=== PATIENT | female | born 1950 | race Asian ===

== ENCOUNTER 2017-03-31 13:16 | Inpatient (IN) | payer MEDICARE, MEDICAID ==
[2017-03-31] VITALS (8 sets, daily range): BP systolic 138–194; BP diastolic 92–111; PULSE 78–112; RESP 20; O2SAT 96–99
[~2017-03-31] VITALS: Ht 154.9 cm; Wt 41.3 kg
[2017-03-31 14:14] LABS: BASOPHILS % (AUTO) 0.2 % (0-3); EOSINOPHILS % (AUTO) 1.8 % (0-5); MONOCYTES % (AUTO) 4.6 % (4-12); Mean Corpuscular Hemoglobin 19.3 pg (27.0-35.0); Mean Corpuscular Volume 59.6 fL (81-100); NEUTROPHILS % (AUTO) 88.2 % (40-74); Platelet Count 258 bil/L (150-400)
--- NOTE | 2017-03-31 15:56 | ED.REPORT ---
HPI-General Illness Date of Service Mar 31, 2017 ED Provider: History of Present Illness: 66yo female with steadily worsening weakness for 1 month. She returned from [place] in early March and family members report continued decline in functioning. Pt. reports increasing abdominal pain, and decreased bowel function. No BM in 1 week. Se was seen in Urgent care Clinic earlier today and referred here for further evaluation. No meds or allergies. Nursing Notes Stated Complaint: NOT FEELING WELL Chief Complaint: General Complaint Nursing Notes Reviewed: Yes Allergies: Coded Allergies: No Known Allergies (Unverified , 03/31/17) No Active Prescriptions or Reported Meds General Time Seen by MD: 15:49 Chief Complaint Abdominal pain, Weakness Hx Obtained From: Patient Arrived By: Walk-in Sudden in Onset?: No Onset Occurred: More than a week ago... (3 weeks) Symptom Duration: Since onset Severity: Current: Mild Severity: Maximum: Moderate Similar Sx Previous: No Past Medical History Past Medical History Pt. denies Past Surgical History Pt. denies Social History Alcohol Use: Denies alcohol use Drug Use: Denies drug use Other Social History: Good social support Ambulatory Status Independent Review of Systems Full Review of Systems Constitutional: Reports: Weakness - generalized, Denies: Chills, Fever Respiratory: Denies: Non-productive cough, Shortness of breath, Wheezing Cardiovascular: Denies: Chest pain GI: Reports: Abdominal pain, Constipation Neurologic: Denies: Change LOC, Confusion, Dizziness, Headache, Slurred speech Complete sys rev & neg: except as marked. Physical Exam Vital Signs Vital Signs Date Time Temp Pulse Resp B/P Pulse Ox O2 Delivery O2 Flow Rate FiO2 03/31/17 16:25 36.6 78 20 158/100 99 Room Air 03/31/17 13:22 36.4 111 20 138/92 99 Room Air Initial VS: Reviewed General/Constitutional: Awake, Alert, No acute distress, Well hydrated, Not toxic appearing Appearance / Presentation: Positive: Frail Pt. likely has some cognitive decline. ENT: Airway patent, Mucous membranes moist, Pharynx NL Neck: Supple, Full range of motion, No adenopathy Respiratory / Chest: Atraumatic, Breath sounds NL, Breath sounds = bilat Cardiovascular: Heart rate NL, Regular rhythm, Heart sounds NL Abdomen: Soft, No guarding, No distention, No palpable mass Tenderness/Guarding/Rebound: Positive: Tender diffuse Interpretation & Diagnostics Lab Results Interpretation Result Diagram: 03/31/17 1405 03/31/17 1405 Test 03/31/17 14:05 03/31/17 16:31 White Blood Count 23.4th/mm3 (3.8-10.1) Red Blood Count 6.06mil/mm3 (3.90-5.20) Hemoglobin 11.7g/dL (12.0-15.6) Hematocrit 36.1% (35.0-46.0) Mean Corpuscular Volume 59.6fL (81-100) Mean Corpuscular Hemoglobin 19.3pg (27.0-35.0) Mean Corpuscular Hemoglobin Concent 32.4% (32.0-37.0) Red Cell Distribution Width 17.9% (12.3-15.4) Platelet Count 258bil/L (150-400) Neutrophils (%) (Auto) 88.2% (40-74) Lymphocytes (%) (Auto) 4.5% (14-46) Monocytes (%) (Auto) 4.6% (4-12) Eosinophils (%) (Auto) 1.8% (0-5) Basophils (%) (Auto) 0.2% (0-3) Sodium Level 126mEq/L (134-144) Potassium Level 5.2mEq/L (3.5-5.2) Chloride Level 87mEq/L (97-108) Carbon Dioxide Level 21mmol/L (18-29) Blood Urea Nitrogen 35mg/dL (8-27) Creatinine 1.00mg/dL (0.57-1.00) Estimat Glomerular Filtration Rate 79mL/min (>59) Glucose Level 141mg/dL (60-99) Calcium Level 9.8mg/dL (8.5-10.1) Total Bilirubin 0.4mg/dL (0.0-1.2) Aspartate Amino Transf (AST/SGOT) 24U/L (0-50) Alanine Aminotransferase (ALT/SGPT) 36U/L (0-32) Alkaline Phosphatase 705U/L (25-165) Total Protein 7.9g/dL (6.4-8.4) Albumin 3.8g/dL (3.4-5.0) Urine Color Yellow (YELLOW) Urine Appearance Cloudy (CLEAR,HAZY) Urine pH 5.5 (5.0-8.0) Urine Specific Campbell 1.024 (1.003-1.035) Urine Protein 100mg/dL (NEG,TRACE) Urine Glucose (UA) Negativemg/dL (NEGATIVE) Urine Ketones Negativemg/dL (NEGATIVE) Urine Occult Blood Trace (NEGATIVE) Urine Nitrite Negative (NEGATIVE) Urine Bilirubin Negative (NEGATIVE) Urine Urobilinogen Normalmg/dL (NORMAL) Urine Leukocyte Esterase Trace (NEGATIVE) Urine RBC 0-2/hpf (0-2) Urine WBC 11-50/hpf (0-5) Urine Epithelial Cells Few/hpf (NONE-MOD) Urine Crystals None seen (NONE SEEN) Urine Bacteria Many/hpf (NONE-FEW) Urine Hyaline Casts None/lpf (NONE) Urine Granular Casts None seen (NONE SEEN) Urine Waxy Casts None seen (NONE SEEN) Urine Red Blood Cell Casts None seen (NONE SEEN) Urine White Blood Cell Casts None seen (NONE SEEN) Urine Mucus Present (None Seen) Urine Trichomonas None seen (NONE SEEN) Urine Yeast None (NONE SEEN) Urinalysis Comment Transitional epi Urine Culture Reflexed Indicated CT Abd / Pelvis Interpretation Patient Name: ELLIS GREENBERG MR#: [id number] [place] [facility] [place] Ordering Phys: Stepan Jameson [facility] Date of Service: 03/31/17 1601 PROCEDURE: CT ABDOMEN AND PELVIS WITH CONTRAST ([id number]) INDICATIONS: 66 year-old female with diffuse abdominal pain and leukocytosis. TECHNIQUE: After the administration of oral and intravenous contrast, 5 mm thick sections acquired from the diaphragms to the symphysis. 5 mm thick coronal and sagittal reformats were performed. For radiation dose reduction, the following was used: automated exposure control, adjustment of mA and/or kV according to patient size. COMPARISON: None. FINDINGS: Image quality: Excellent. ABDOMEN: Lung bases: Numerous small right lung base nodules are present. Larger 2.6 x 2.2 cm masslike lesion lies within the left lower lobe, with small left basal pleural effusion causing left lung base compressive atelectasis. On axial image 4, several irregular enhancing pleural lesions lie adjacent to the descending thoracic aorta, measuring up to 2.5 x 1.4 cm. Solid organs: Liver is normal in overall size, with multiple hypoenhancing mass lesions identified with ill-defined borders, measuring up to 4.1 x 4.0 cm in the inferior right hepatic lobe. Gallbladder demonstrates diffuse circumferential wall thickening or pericholecystic fluid. Biliary system is non-dilated. Pancreas enhances normally. Spleen is normal in size, with solitary 1.2 cm medial hypoenhancing nodule on axial image 14. No adrenal nodules. Kidneys are normal in size and enhancement, without hydronephrosis. Peritoneum and bowel: Stomach, small bowel, and colon loops are normal in caliber and wall thickness. The appendix appears normal in caliber. No free fluid or air. Nodes and vessels: No retroperitoneal or mesenteric adenopathy. Aorta and inferior vena cava are normal in caliber, with aortoiliac atherosclerosis. Miscellaneous: No ventral hernias. PELVIS: Genitourinary: Bladder wall thickness is normal. The uterus is normal in overall size. Postmenopausal ovaries are not well seen. Miscellaneous: No inguinal hernias or adenopathy. Bones: Multiple sclerotic lesions involve the lower thoracic spine, as well as the L1, L2, and L4 vertebral bodies. Additional sclerotic lesions involve the sacrum and bilateral pelvic ring. No pathologic fractures identified. IMPRESSION: 1. Multiple hypovascular liver metastases of uncertain primary neoplasm. Additional solitary smaller medial splenic lesion is also suspicious for metastasis. 2. Numerous small right lung base metastases, as well as larger 2.6 cm left lower lobe mass lesion (possibly primary bronchogenic neoplasm). Consider contrast-enhanced chest CT to evaluate for more lesions within the mid and superior thorax when clinically feasible. 3. Small left basal pleural effusion is presumably malignant, along with several irregular enhancing left pleural lesions suspicious for metastases. Ultrasound-guided diagnostic left thoracentesis may be considered for further evaluation. 4. Numerous sclerotic bony metastases involve the lumbar and lower thoracic spine, as well as the sacrum and pelvic ring. 5. Circumferential gallbladder wall thickening and/or pericholecystic fluid may suggest acute cholecystitis in the appropriate clinical setting. Dictated by: Zia Grace M.D. on 03/31/2017 at 18:13 Approved by: Zia Grace M.D. on 03/31/2017 at 18:26 Re-Eval/Medical Decision Med Decision/Clinical Course Pt. and family apprised of CT results showing liver, lung, and bone cancer. Pt. may also have cholecystitis. Pt. examined by Dr. Rutherford who ordered IV antibiotics, and wants surgeon consult after admission to hospitalist service. Consultation : Consulted With: Hospitalist Requested Call at: 18:30 Call Returned at: 19:20 Dial Refinisher: Accepts admit Note: Starr Chinchilla MD, accepts Pt. to her service Counseled Regarding: Diagnosis, Need for admission Discharge & Departure Primary Impression: Liver cancer Liver malignancy type: unspecified liver malignancy Qualified Code: C22.9 - Malignant neoplasm of liver, not specified as primary or secondary Additional Impressions: Lung cancer Laterality: unspecified laterality Lung location: unspecified part of lung Qualified Code: C34.90 - Malignant neoplasm of unspecified part of unspecified bronchus or lung Weakness Hyponatremia Disposition: ADMITTED TO HOSPITAL EDSupervising Provider for APC: Aiden Rutherford Christopher R PAC Mar 31, 2017 15:56
[2017-03-31] MEDS ORDERED: 0.9% Sodium Chloride 1,000 ML IV SCH (16:05)
[2017-03-31] MEDS ORDERED: Iohexol 300 mg/mL 30 mL Inj PO ONE (16:20)
[2017-03-31 17:08] LABS: APPEARANCE,URINE CLOUDY (CLEAR,HAZY); COLOR,URINE YELLOW (YELLOW); PH,URINE 5.5 (5.0-8.0)
[2017-03-31 17:10] LABS: OCCULT BLOOD,URINE TRACE (NEGATIVE); UROBILINOGEN,URINE NORMAL (NORMAL)
--- NOTE | 2017-03-31 18:28 | DRSVH ---
PROCEDURE: CT ABDOMEN AND PELVIS WITH CONTRAST ([id number]) INDICATIONS: 66 year-old female with diffuse abdominal pain and leukocytosis. TECHNIQUE: After the administration of oral and intravenous contrast, 5 mm thick sections acquired from the diap hragms to the symphysis. 5 mm thick coronal and sagittal reformats were performed. For radiation do se reduction, the following was used: automated exposure control, adjustment of mA and/or kV accordi ng to patient size. COMPARISON: None. FINDINGS: Image quality: Excellent. ABDOMEN: Lung bases: Numerous small right lung base nodules are present. Larger 2.6 x 2.2 cm masslike lesion l ies within the left lower lobe, with small left basal pleural effusion causing left lung base rox sive atelectasis. On axial image 4, several irregular enhancing pleural lesions lie adjacent to the d escending thoracic aorta, measuring up to 2.5 x 1.4 cm. Solid organs: Liver is normal in overall size, with multiple hypoenhancing mass lesions identified wi th ill-defined borders, measuring up to 4.1 x 4.0 cm in the inferior right hepatic lobe. Gallbladder demonstrates diffuse circumferential wall thickening or pericholecystic fluid. Biliary system is non -dilated. Pancreas enhances normally. Spleen is normal in size, with solitary 1.2 cm medial hypoenh ancing nodule on axial image 14. No adrenal nodules. Kidneys are normal in size and enhancement, wit hout hydronephrosis. Peritoneum and bowel: Stomach, small bowel, and colon loops are normal in caliber and wall thickness . The appendix appears normal in caliber. No free fluid or air. Nodes and vessels: No retroperitoneal or mesenteric adenopathy. Aorta and inferior vena cava are no rmal in caliber, with aortoiliac atherosclerosis. Miscellaneous: No ventral hernias. PELVIS: Genitourinary: Bladder wall thickness is normal. The uterus is normal in overall size. Postmenopaus al ovaries are not well seen. Miscellaneous: No inguinal hernias or adenopathy. Bones: Multiple sclerotic lesions involve the lower thoracic spine, as well as the L1, L2, and L4 rubén tebral bodies. Additional sclerotic lesions involve the sacrum and bilateral pelvic ring. No patholog ic fractures identified. IMPRESSION: 1. Multiple hypovascular liver metastases of uncertain primary neoplasm. Additional solitary smaller medial splenic lesion is also suspicious for metastasis. 2. Numerous small right lung base metastases, as well as larger 2.6 cm left lower lobe mass lesion (p ossibly primary bronchogenic neoplasm). Consider contrast-enhanced chest CT to evaluate for more lesi ons within the mid and superior thorax when clinically feasible. 3. Small left basal pleural effusion is presumably malignant, along with several irregular enhancing left pleural lesions suspicious for metastases. Ultrasound-guided diagnostic left thoracentesis may b e considered for further evaluation. 4. Numerous sclerotic bony metastases involve the lumbar and lower thoracic spine, as well as the sac rum and pelvic ring. 5. Circumferential gallbladder wall thickening and/or pericholecystic fluid may suggest acute cholecy stitis in the appropriate clinical setting. Dictated by: Zia Grace M.D. on 03/31/2017 at 18:13 Approved by: Zia Grace M.D. on 03/31/2017 at 18:26
[2017-03-31] MEDS ORDERED: Piperacillin-Tazo 3.375 Gm Inj 3.375 GM in Dextrose 5% Minibag Plus 50 ML IV ONE (18:40)
[2017-03-31] MEDS ORDERED: Alum-Mag Hydrox-Simeth 30 mL Suspension PO PRN (20:50)
[2017-03-31] MEDS ORDERED: Polyethylene Glycol (PEG) 17 Gm Powder PO PRN (20:50)
[2017-03-31] MEDS ORDERED: Ondansetron 2 mg/mL 2 mL Inj IVPUSH PRN (20:50)
--- NOTE | 2017-03-31 22:28 | PCM.HPMED ---
Subjective Date of Service Mar 31, 2017 Primary Provider: Admitting Physician: Starr Chinchilla DO Primary Care Physician: Magdaleno Attending Physician: Starr Chinchilla DO Admit Status: From the Emergency Department Chief Complaint: General malaise and fatigue History of Present Illness: History obtained from family as patient is a poor historian. 66-year-old female with reported paranoid delusions presents emergency department due to progressive weakness and weight loss over the last month, with rapid decline over the last 2 weeks. Per patient report, she recently returned from [facility] (March 18) with a week long stay in [place]. Upon leaving [facility] she had started to become more warm down, but after her one- week stay in [place] she began having severe weakness with very little exertional capacity. since being here with her daughter she has continued decline more rapidly and is currently anorexic. She denies ongoing fever, chills, nausea, vomiting, diarrhea, right upper quadrant pain; she does state that she has diffuse abdominal tenderness, has noticed a weight loss in the last month but is unable to say how much. She denies any night sweats or neurological sequelae. In the ED CT of the abdomen was obtained which showed very diffuse metastatic disease in the abdomen and lungs with unknown primary. Patient also has questionable cholecystitis diagnosed by CT, which is not ideal, but also has leukocytosis and elevated LFTs. Called surgery may Dr. Jimenez aware of the situation and he requests an ultrasound of the right upper quadrant. At this time I did not ask him to see the patient urgently but he will follow-up in the a.m. when the ultrasound was completed. Review of Systems: Complete review of systems performed; pertinent positives and negatives per history of present illness, all other systems reviewed and are negative Allergies Coded Allergies: No Known Allergies (Unverified , 03/31/17) PMH None reported Surgical History None reported Family History Sister had unknown cancer Unsure about parents Social History Hx Alcohol Use: No Hx Substance Use: No Hx Tobacco Use: No (denies) Smoking Status: Never Smoker Living Arrangement: with Family (she is somewhat transient moving between [facility], [place], and [place]) Exam Vital Signs Vital Sign - Last Date Time Temp Pulse Resp B/P Pulse Ox O2 Delivery O2 Flow Rate FiO2 03/31/17 21:40 104 03/31/17 21:30 37.7 20 194/111 96 Room Air Exam General: Reserved, age-appropriate female, no acute distress HEENT: PERRLA, EOMI, nonicteric, membranes moist; cataracts Lymph: Enlarged cervical lymph nodes; did not appreciate supraclavicular lymph nodes Cardio: Regular rate and rhythm no murmurs rubs or gallops Respiratory: CTA bilaterally crackles noted Abdomen: Mildly guarded, no rebound, positive bowel sounds, hepatosplenomegaly dullness to percussion 4 cm below the rib cage on the right; no right upper quadrant tenderness to palpation Extremities: No edema; 3 out of 5 Psych: Reserved Neuro: CN II through XII grossly intact, sensation intact throughout Skin: No rash Lab and Diagnostics Result Diagram: 03/31/17 1405 03/31/17 1405 X-Rays, CTs and MRIs CT of abdomen IMPRESSION: 1. Multiple hypovascular liver metastases of uncertain primary neoplasm. Additional solitary smaller medial splenic lesion is also suspicious for metastasis. 2. Numerous small right lung base metastases, as well as larger 2.6 cm left lower lobe mass lesion (possibly primary bronchogenic neoplasm). Consider contrast-enhanced chest CT to evaluate for more lesions within the mid and superior thorax when clinically feasible. 3. Small left basal pleural effusion is presumably malignant, along with several irregular enhancing left pleural lesions suspicious for metastases. Ultrasound-guided diagnostic left thoracentesis may be considered for further evaluation. 4. Numerous sclerotic bony metastases involve the lumbar and lower thoracic spine, as well as the sacrum and pelvic ring. 5. Circumferential gallbladder wall thickening and/or pericholecystic fluid may suggest acute cholecystitis in the appropriate clinical setting. Dictated by: Zia Grace M.D. on 03/31/2017 at 18:13 Assessment & Plan 66-year-old female with reported paranoid delusions who presents due to increasing weakness, general malaise, anorexia, and reported weight loss with diffuse metastases of unknown primary origin Sepsis; present admission; ongoing -Presents with tachycardia and leukocytosis -Source likely gallbladder -See below for treatment -Patient does not appear toxic at this point Acute cholecystitis; was on admission; ongoing -Patient is not overly tender in the right upper quadrant for possible cholecystitis on CT with leukocytosis 26,000; alkaline phosphatase elevated at 705 (potentially d/t metastatic disease) -Discussed with Dr. Jimenez of surgery requested ultrasound; I did not request that he urgently evaluate the patient; will watch for any decompensation -Ultrasound ordered -Zosyn every 8HR -Repeat labs in a.m. Diffuse metastases of unknown primary origin; present admission; ongoing -Presents with weight loss, anorexia over the last month or so; enlarged auricular lymph nodes -CT demonstrated diffuse metastatic disease -consultation from palliative in the a.m. -consultation from oncology consultation in a.m. -Patient does not believe her diagnosis and family states she has an underlying paranoid delusion -Started on subq Heparin for prophylaxis Hypertensive urgency; present admission; ongoing -Presents with blood pressure 130/72 but quickly increased to greater than 190/ 110 -Labetalol 20 mg ordered for SBP greater than 180 Should this persist will move her to the ICU with nicardipine gtt Microcytic hypochromic anemia, chronicity unknown; present on admission; ongoing -MCV and MCH, as well as hemoglobin decreased -Iron studies Hyponatremia, hypochloremia; present admission; ongoing -Unsure chronicity, very small anion gap of 18 -Likely 2/2 SIADH in the setting of cancer however patient will be treated for sepsis at this time -Monitor sodium closely Hyperglycemia; present admission; ongoing -No history of diabetes -A1c ordered -Low correctional scale; will start basal tomorrow Disposition: Patient is being admitted to inpatient status with expected length of stay greater than two midnights due to to severity of presentation, duration of treatment, and risks of adverse events disposition Full code Pain Evaluation: Adequate Pain Control Resuscitation Status: CPR: Attempt Resuscitation Attending Statement The patient was seen and examined together with house staff on 03/31/2017 and I agree with the history, exam and plan as outlined in the note above. Chaitanya Fernandez DO Mar 31, 2017 22:28 Starr Chinchilla DO Apr 01, 2017 01:15
[2017-03-31] MEDS ORDERED: 0.9% Sodium Chloride 1,000 ML IV ONE ×2 (22:35→22:40)
[2017-03-31] MEDS ORDERED: Glucose 40% Oral Gel 15 Gm Tube PO PRN (22:45)
[2017-03-31] MEDS: 0.9% Sodium Chloride 1,000 ML IV SCH (22:46)
[2017-04-01] VITALS (15 sets, daily range): BP systolic 143–194; BP diastolic 89–112; PULSE 80–103; RESP 15–20; O2SAT 84–99
[2017-04-01] MEDS: Heparin 5,000 Unit/mL Inj SUBQ SCH ×3 (00:28→21:05)
[2017-04-01] MEDS ORDERED: Piperacillin-Tazo 3.375 Gm Inj 3.375 GM in Dextrose 5% Minibag Plus 50 ML IV SCH (00:30)
[2017-04-01] MEDS: Labetalol 5 mg/mL 20 mL Inj IVPUSH PRN ×4 (03:26→17:15)
[2017-04-01 04:30] LABS: BASOPHILS % (AUTO) 0.3 % (0-3); EOSINOPHILS % (AUTO) 4.8 % (0-5)
[2017-04-01 04:39] LABS: MONOCYTES % (AUTO) 9.4 % (4-12); Mean Corpuscular Hemoglobin 19.2 pg (27.0-35.0); Mean Corpuscular Volume 59.6 fL (81-100); NEUTROPHILS % (AUTO) 77.6 % (40-74); Platelet Count 161 bil/L (150-400)
[2017-04-01 04:43] LABS: INR 1.06 ratio
[2017-04-01 05:02] LABS: Magnesium 1.8 mg/dL (1.6-2.6); Phosphorus 3.5 mg/dL (2.5-4.9); Unsaturated Iron Binding 146.8 ug/dL
[2017-04-01] MEDS: Piperacillin-Tazo 3.375 Gm Inj 3.375 GM in Dextrose 5% Minibag Plus 50 ML IV SCH ×2 (05:34→18:08)
[2017-04-01] MEDS: 0.9% Sodium Chloride 1,000 ML IV SCH ×2 (06:43→16:56)
[2017-04-01] MEDS: Insulin LISPRO 300 Unit/3 mL Inj SUBQ SCH ×4 (07:45→21:05)
--- NOTE | 2017-04-01 09:51 | DRSVH ---
PROCEDURE: US ABDOMEN, LIMITED ([id number]) INDICATIONS: Septic gallbladder TECHNIQUE: Real-time focused scanning was performed of the abdomen, with image documentation. COMPARISON: [facility], CT, CT ABD PELVIS W CON, 03/31/2017, 17:42. FINDINGS: As was the case during CT scanning yesterday late afternoon multiple liver masses are seen within the right hepatic lobe the largest of which measures up to 3.6 cm. The gallbladder wall is sl ightly thickened at 3.1 mm, and there is no adjacent pericholecystic free fluid. The common duct is not distended measuring 2.8 mm. IMPRESSION: Multiple malignant appearing liver masses. This is equivalent to that seen during CT sca nning one day ago. Limited quality of visualization for this right upper quadrant limited ultrasound due to patient's inability to suspend respiration during image acquisition. The patient carries a p rior history of lung carcinoma. Dictated by: Kingston Jo M.D. on 04/01/2017 at 9:38 Approved by: Kingston Jo M.D. on 04/01/2017 at 9:50
--- NOTE | 2017-04-01 10:29 | PCM.CONSUR ---
Subjective Date of Service: Apr 01, 2017 History of Present Illness Mrs. Monterroso presented to the ED yesterday complaining that she has had decreased energy, back pain, and abdominal pain for the last month. This is been associated with weight loss, constipation, and decreased appetite with nausea. She denies fevers, sweats, chills, jaundice. She claims that she has always been healthy and without medical problems. CT scan was performed and showed metastatic disease of lung, liver, lumbar spine, of unknown primary origin. Surgery was consulted to evaluate for possible cholecystitis. Reason for Consultation Possible Acute cholecystitis Allergy Allergies: Coded Allergies: No Known Allergies (Unverified , 03/31/17) Medications Hypertension Medication: Yes (IV labetalol for hypertensive urgency upon admission) No Active Prescriptions or Reported Meds Past Surgical History Surgeries: No Patient/Family Past Surgical: Positive for:: Accept Blood Products?, Denies:: Blood Transfuse Reaction, Blood Transfusions Social History Hx Alcohol Use: No Hx Substance Use: No Hx Tobacco Use: No (denies) PMH HEENT History History of ENT Problems?: No Cardiovascular History History of Heart Problems?: No Cardiovascular History: Denies:: Congestive Heart Failure Hypertension Respiratory History of Respiratory Problem: Yes Respiratory History: Positive for:: Cough Denies:: Tuberculosis Neurological History Hx Neurologic Problems?: No Gastrointestinal History HX of GI Problems?: Yes (constipation) Genitourinary History Hx of Gu Problems?: No Musculoskeletal History Hx Musculoskeletal Problems?: Yes Musculoskeletal History: Positive for:: Back Injury Psycho Social History Hx of Psycho/Social Problems?: No Psycho Social History: Denies:: Anxiety Other History Hx Any Other Health Problems?: No Diabetes: NoBedside Blood Glucose: 118 Social History Hx Alcohol Use: NoHx Substance Use: NoHx Tobacco Use: No (denies) Smoking Status: Never Smoker Living Arrangement: with Family (she is somewhat transient moving between [facility], [place], and [place]) Objective Exam Vital Signs & I/O Vital Sign- Last 8 Hours Date Time Temp Pulse Resp B/P Pulse Ox O2 Delivery O2 Flow Rate FiO2 04/01/17 08:30 36.5 99 18 159/101 93 Room Air 04/01/17 03:30 93 146/91 04/01/17 03:21 36.8 103 16 183/111 97 Room Air Intake and Output- Last 8 Hour 04/01/17 Cumulative From/Thru 07:00 03/31/17 13:22 - 04/01/17 06:16 Intake Total 2132 ml 2132 ml Output Total 900 ml 900 ml Balance 1232 ml 1232 ml Intake Oral 300 ml 300 ml IV Total 1832 ml 1832 ml Output Urine Total 900 ml 900 ml # Voids 3 3 Lab & Micro Results Laboratory Tests Test 03/31/17 14:05 03/31/17 16:31 03/31/17 23:15 04/01/17 03:50 White Blood Count 23.4th/mm3 (3.8-10.1) 19.6th/mm3 (3.8-10.1) Red Blood Count 6.06mil/mm3 (3.90-5.20) 5.00mil/mm3 (3.90-5.20) Hemoglobin 11.7g/dL (12.0-15.6) 9.6g/dL (12.0-15.6) Hematocrit 36.1% (35.0-46.0) 29.8% (35.0-46.0) Mean Corpuscular Volume 59.6fL (81-100) 59.6fL (81-100) Mean Corpuscular Hemoglobin 19.3pg (27.0-35.0) 19.2pg (27.0-35.0) Mean Corpuscular Hemoglobin Concent 32.4% (32.0-37.0) 32.2% (32.0-37.0) Red Cell Distribution Width 17.9% (12.3-15.4) 17.3% (12.3-15.4) Platelet Count 258bil/L (150-400) 161bil/L (150-400) Neutrophils (%) (Auto) 88.2% (40-74) 77.6% (40-74) Lymphocytes (%) (Auto) 4.5% (14-46) 7.3% (14-46) Monocytes (%) (Auto) 4.6% (4-12) 9.4% (4-12) Eosinophils (%) (Auto) 1.8% (0-5) 4.8% (0-5) Basophils (%) (Auto) 0.2% (0-3) 0.3% (0-3) Sodium Level 126mEq/L (134-144) 128mEq/L (134-144) Potassium Level 5.2mEq/L (3.5-5.2) 4.2mEq/L (3.5-5.2) Chloride Level 87mEq/L (97-108) 94mEq/L (97-108) Carbon Dioxide Level 21mmol/L (18-29) 18mmol/L (18-29) Blood Urea Nitrogen 35mg/dL (8-27) 26mg/dL (8-27) Creatinine 1.00mg/dL (0.57-1.00) 0.82mg/dL (0.57-1.00) Estimat Glomerular Filtration Rate 79mL/min (>59) 100mL/min (>59) Glucose Level 141mg/dL (60-99) 111mg/dL (60-99) Calcium Level 9.8mg/dL (8.5-10.1) 8.8mg/dL (8.5-10.1) Total Bilirubin 0.4mg/dL (0.0-1.2) 0.4mg/dL (0.0-1.2) Aspartate Amino Transf (AST/SGOT) 24U/L (0-50) 23U/L (0-50) Alanine Aminotransferase (ALT/SGPT) 36U/L (0-32) 26U/L (0-32) Alkaline Phosphatase 705U/L (25-165) 584U/L (25-165) Total Protein 7.9g/dL (6.4-8.4) 6.0g/dL (6.4-8.4) Albumin 3.8g/dL (3.4-5.0) 2.9g/dL (3.4-5.0) Urine Color Yellow (YELLOW) Urine Appearance Cloudy (CLEAR,HAZY) Urine pH 5.5 (5.0-8.0) Urine Specific [place] 1.024 (1.003-1.035) Urine Protein 100mg/dL (NEG,TRACE) Urine Glucose (UA) Negativemg/dL (NEGATIVE) Urine Ketones Negativemg/dL (NEGATIVE) Urine Occult Blood Trace (NEGATIVE) Urine Nitrite Negative (NEGATIVE) Urine Bilirubin Negative (NEGATIVE) Urine Urobilinogen Normalmg/dL (NORMAL) Urine Leukocyte Esterase Trace (NEGATIVE) Urine RBC 0-2/hpf (0-2) Urine WBC 11-50/hpf (0-5) Urine Epithelial Cells Few/hpf (NONE-MOD) Urine Crystals None seen (NONE SEEN) Urine Bacteria Many/hpf (NONE-FEW) Urine Hyaline Casts None/lpf (NONE) Urine Granular Casts None seen (NONE SEEN) Urine Waxy Casts None seen (NONE SEEN) Urine Red Blood Cell Casts None seen (NONE SEEN) Urine White Blood Cell Casts None seen (NONE SEEN) Urine Mucus Present (None Seen) Urine Trichomonas None seen (NONE SEEN) Urine Yeast None (NONE SEEN) Urinalysis Comment Transitional epi Urine Culture Reflexed Indicated Lactic Acid Level 1.8mmol/L (0.4-2.0) 1.4mmol/L (0.4-2.0) Hematology Comments Rbc Prothrombin Time 11.4sec (8.1-12.5) Prothromb Time International Ratio 1.06ratio Phosphorus Level 3.5mg/dL (2.5-4.9) Magnesium Level 1.8mg/dL (1.6-2.6) Iron Level 79ug/dL (35-150) Total Iron Binding Capacity 226ug/dL (250-450) Percent Iron Saturation 35%sat (15-50) Unsaturated Iron Binding 146.8ug/dL Triglycerides Level 127mg/dL (0-149) Cholesterol Level 183mg/dL (100-199) LDL Cholesterol, Calculated 109.600mg/dL (0-99) VLDL Cholesterol 25.400mg/dL HDL Cholesterol 48mg/dL (>39) Cholesterol/HDL Ratio 3.81 (0.0-4.4) Procalcitonin 0.26ng/mL (0.00-0.08) Microbiology 03/31/17 Blood Culture, Received Pending 03/31/17 Urine Culture - Preliminary, Resulted Result Diagram: 04/01/1734904/01/17349 Review of Systems: Constitutional: Negative, except as otherwise mentioned in the history above. Ophthalmologic: Negative, except as otherwise mentioned in the history above. Cardiovascular: Negative, except as otherwise mentioned in the history above. Respiratory: Negative, except as otherwise mentioned in the history above. Gastrointestinal: Negative, except as otherwise mentioned in the history above. Genitourinary: Negative, except as otherwise mentioned in the history above. Musculoskeletal: Negative, except as otherwise mentioned in the history above. Neurological: Negative, except as otherwise mentioned in the history above. Psychiatric: Negative, except as otherwise mentioned in the history above. Hematologic/Lymphatic: Negative, except as otherwise mentioned in the history above. Allergic/Immunologic: Negative, except as otherwise mentioned in the history above. Additional Information CT concerning for metastatic cancer US did not reveal gallstones H&P Surgical Exam Exam General: Alert, Oriented X3, Cooperative, Mild Distress HEENT: Within normal limits & unremarkable Neck: Exceptions (soft nontender mass, approximately 3 x 6 cm, posterior to the angle of the left mandible) Respiratory: Breath Sounds Diminished (diminished throughout, lung sounds absent at left base posteriorly) Cardiac: Exam Unremarkable, Regular Rate/Rhythm Abdomen: Normal bowel sounds, Other (tender to deep palpation throughout the abdomen) Assessment & Plan Assessment 66-year-old female with newly identified metastatic disease of the liver, lumbar spine, and lungs, with abdominal pain. VTE Mechanical Devices: Intermittant Pneumatic CD Plan: -Unlikely to be cholecystitis in the absence of gallstones. Pain could be related to the metastases -please contact us if you have any questions. Herbie Elizondo DO Apr 01, 2017 10:29 Terry Jimenez MD Apr 01, 2017 21:08 Terry Jimenez MD Apr 01, 2017 21:08
--- NOTE | 2017-04-01 10:39 | PCM.PNMED ---
Subjective Date of Service Apr 01, 2017 Subjective She has less abdominal pain today. No nausea. She did receive some pain medication which did not help. No diarrhea. No chest pain or shortness of breath. No overnight events noted. Exam Vital Signs Vital Sign - Last Date Time Temp Pulse Resp B/P Pulse Ox O2 Delivery O2 Flow Rate FiO2 04/01/17 10:22 94 04/01/17 08:30 36.5 18 159/101 93 Room Air Intake and Output 03/31/17 03/31/17 04/01/17 Cumulative From/Thru 15:00 23:00 07:00 03/31/17 13:22 - 04/01/17 06:16 Intake Total 2132 ml 2132 ml Output Total 900 ml 900 ml Balance 1232 ml 1232 ml Intake Oral 300 ml 300 ml IV Total 1832 ml 1832 ml Output Urine Total 900 ml 900 ml # Voids 3 3 Exam Alert and oriented -3, no distress. Fluent speech Anicteric sclera. Lungs are clear with normal rate and effort Heart is regular without murmur gallop or rub Abdomen soft nontender, flat. No right upper quadrant tenderness at this time. Extremities are free of edema. Skin is free of rash or lesions. IVs and Medications Medications Reviewed: Medications were reviewed in detail Lab and Diagnostics Result Diagram: 04/01/17 0350 04/01/17 0350 X-Rays, CTs and MRIs CT of abdomen IMPRESSION: 1. Multiple hypovascular liver metastases of uncertain primary neoplasm. Additional solitary smaller medial splenic lesion is also suspicious for metastasis. 2. Numerous small right lung base metastases, as well as larger 2.6 cm left lower lobe mass lesion (possibly primary bronchogenic neoplasm). Consider contrast-enhanced chest CT to evaluate for more lesions within the mid and superior thorax when clinically feasible. 3. Small left basal pleural effusion is presumably malignant, along with several irregular enhancing left pleural lesions suspicious for metastases. Ultrasound-guided diagnostic left thoracentesis may be considered for further evaluation. 4. Numerous sclerotic bony metastases involve the lumbar and lower thoracic spine, as well as the sacrum and pelvic ring. 5. Circumferential gallbladder wall thickening and/or pericholecystic fluid may suggest acute cholecystitis in the appropriate clinical setting. Dictated by: Zia Grace M.D. on 03/31/2017 at 18:13 Date of Service: 04/01/17 0030 PROCEDURE: US ABDOMEN, LIMITED ([id number]) INDICATIONS: Septic gallbladder TECHNIQUE: Real-time focused scanning was performed of the abdomen, with image documentation. COMPARISON: [facility], CT, CT ABD PELVIS W LAURIE, 03/31/2017, 17:42. FINDINGS: As was the case during CT scanning yesterday late afternoon multiple liver masses are seen within the right hepatic lobe the largest of which measures up to 3.6 cm. The gallbladder wall is slightly thickened at 3.1 mm, and there is no adjacent pericholecystic free fluid. The common duct is not distended measuring 2.8 mm. IMPRESSION: Multiple malignant appearing liver masses. This is equivalent to that seen during CT scanning one day ago. Limited quality of visualization for this right upper quadrant limited ultrasound due to patient's inability to suspend respiration during image acquisition. The patient carries a prior history of lung carcinoma. Dictated by: Kingston Jo M.D. on 04/01/2017 at 9:38 Approved by: Kingston Jo M.D. on 04/01/2017 at 9:50 Assessment & Plan 66-year-old female with reported paranoid delusions who presents due to increasing weakness, general malaise, anorexia, and reported weight loss with diffuse metastases of unknown primary origin Sepsis; present admission; ongoing and improving. -Presents with tachycardia and leukocytosis -Source likely gallbladder -See below for treatment -Patient does not appear toxic at this point Acute cholecystitis; was on admission; ongoing and active. -Patient is not overly tender in the right upper quadrant for possible cholecystitis on CT with leukocytosis 26,000; alkaline phosphatase elevated at 705 (potentially d/t metastatic disease) -Discussed with Dr. Jimenez of surgery requested ultrasound; I did not request that he urgently evaluate the patient; will watch for any decompensation -Ultrasound ordered, reveals no bladder wall thickening, but no matt- cholestatic fluid. -Zosyn every 8HR -Repeat labs in a.m. Await surgery's opinion and medical versus surgical management Diffuse metastases of unknown primary origin; present admission; ongoing -Presents with weight loss, anorexia over the last month or so; enlarged auricular lymph nodes -CT demonstrated diffuse metastatic disease -consultation from palliative in the a.m. -consultation from oncology consultation in a.m. -Patient does not believe her diagnosis and family states she has an underlying paranoid delusion -Started on subq Heparin for prophylaxis. Will await palliative care consult pending clinical course with cholecystitis today. Hypertensive urgency; present admission; ongoing and improving. -Presents with blood pressure 130/72 but quickly increased to greater than 190/ 110 -Labetalol 20 mg ordered for SBP greater than 180 Should this persist will move her to the ICU with nicardipine gtt Microcytic hypochromic anemia, chronicity unknown; present on admission; ongoing -MCV and MCH, as well as hemoglobin decreased -Iron studies Hyponatremia, hypochloremia; present admission; ongoing -Unsure chronicity, very small anion gap of 18 -Likely 2/2 SIADH in the setting of cancer however patient will be treated for sepsis at this time -Monitor sodium closely, will add urine osmolality and sodium. Hyperglycemia; present admission; ongoing and improving. -No history of diabetes -A1c ordered -Low correctional scale; will start basal tomorrow Disposition: Patient is being admitted to inpatient status with expected length of stay greater than two midnights due to to severity of presentation, duration of treatment, and risks of adverse events disposition Full code VTE Mechanical Devices: Intermittant Pneumatic CD Resuscitation Status: CPR: Attempt Resuscitation Marc Jones MD Apr 01, 2017 10:39
[2017-04-01 12:07] LABS: OSMOLALITY, URINE 611 mOs/kH2O (250-1200)
[2017-04-01] MEDS: MeTOProlol XL 25 mg ER24 Tablet PO SCH (14:22)
[2017-04-02] VITALS (20 sets, daily range): BP systolic 155–201; BP diastolic 82–122; PULSE 78–100; RESP 15–18; O2SAT 94–100
[2017-04-02] MEDS: Labetalol 5 mg/mL 20 mL Inj IVPUSH PRN ×2 (00:31→08:18)
[2017-04-02] MEDS: oxyCODONE ER 10 mg ER12 Tablet PO SCH ×2 (02:22→14:31)
[2017-04-02 03:03] LABS: Mean Corpuscular Hemoglobin 19.1 pg (27.0-35.0); Mean Corpuscular Volume 60.6 fL (81-100)
[2017-04-02] MEDS: Piperacillin-Tazo 3.375 Gm Inj 3.375 GM in Dextrose 5% Minibag Plus 50 ML IV SCH ×2 (05:36→17:44)
[2017-04-02] MEDS: Insulin LISPRO 300 Unit/3 mL Inj SUBQ SCH (08:00)
[2017-04-02] MEDS: Heparin 5,000 Unit/mL Inj SUBQ SCH ×2 (08:19→19:57)
[2017-04-02] MEDS: MeTOProlol XL 25 mg ER24 Tablet PO SCH (09:48)
--- NOTE | 2017-04-02 14:40 | PCM.PNMED ---
Subjective Date of Service Apr 02, 2017 Subjective 66-year-old woman with poorly characterized chronic psychiatric disorder presents with 1 month of weakness and weight loss, abdominal pain evaluation, and found to have metastatic lesions of unknown primary origin. Patient is communicative but gives wandering non sequitur answers. She denies feeling fevers or chills. She denies abdominal pain at rest or with palpation. She appears comfortable. Reportedly not eating very much, because she does not like the food. Daughter expressing concerns about level of care she requires at home. Exam Vital Signs Vital Sign - Last Date Time Temp Pulse Resp B/P Pulse Ox O2 Delivery O2 Flow Rate FiO2 04/02/17 12:58 37.1 86 18 158/82 94 Room Air 04/02/17 05:40 1.00 Intake and Output 04/01/17 04/01/17 04/02/17 Cumulative From/Thru 15:00 23:00 07:00 03/31/17 13:22 - 04/02/17 04:21 Intake Total 1899 ml 918 ml 4949 ml Output Total 350 ml 800 ml 2050 ml Balance 1549 ml 118 ml 2899 ml Intake Oral 720 ml 100 ml 1120 ml IV Total 1179 ml 818 ml 3829 ml Output Urine Total 350 ml 800 ml 2050 ml # Voids 3 # Bowel Movements 0 0 Exam General: Responds to questions, no acute distress HEENT: sclerae anicteric, oral mucosa moist Neck: no JVD Chest: Poor inspiratory effort, Bibasilar crackles right greater than left Cardiac: S1S2, no murmur Abdomen: BS normal, non-tender, not distended Extremities: No pedal edema Neuro: Alert but does not seem fully oriented, possibly language and psychiatric impediments, cranial nerves symmetric, motor strength 4/5, coordination generally normal IVs and Medications Medications Reviewed: Medications were reviewed in detail Lab and Diagnostics Alkaline phosphatase 584, total bilirubin 0.4. Transaminases normal. Procalcitonin 0.26 Result Diagram: 04/02/1723904/02/17239 Microbiology Specimen: [id number] Collected: 03/31/17 Status: RES Req#: [id number] Received: 03/31/17 Source: URINE CC Sp Desc : PP Subm Dr: Stepan Jameson PAC Ordered: URINE CULT Procedure Result Verified Site Microbiology MAME CULT URINE Preliminary 04/01/17-0650 PRELIMINARY ID GRAM NEGATIVE JA ID AND SENS TO FOLLOW COLONY COUNT/QUANTITY >100,000 CFU/ml X-Rays, CTs and MRIs CT of abdomen IMPRESSION: 1. Multiple hypovascular liver metastases of uncertain primary neoplasm. Additional solitary smaller medial splenic lesion is also suspicious for metastasis. 2. Numerous small right lung base metastases, as well as larger 2.6 cm left lower lobe mass lesion (possibly primary bronchogenic neoplasm). Consider contrast-enhanced chest CT to evaluate for more lesions within the mid and superior thorax when clinically feasible. 3. Small left basal pleural effusion is presumably malignant, along with several irregular enhancing left pleural lesions suspicious for metastases. Ultrasound-guided diagnostic left thoracentesis may be considered for further evaluation. 4. Numerous sclerotic bony metastases involve the lumbar and lower thoracic spine, as well as the sacrum and pelvic ring. 5. Circumferential gallbladder wall thickening and/or pericholecystic fluid may suggest acute cholecystitis in the appropriate clinical setting. Dictated by: Zia Grace M.D. on 03/31/2017 at 18:13 Date of Service: 04/01/17 0030 PROCEDURE: US ABDOMEN, LIMITED ([id number]) INDICATIONS: Septic gallbladder TECHNIQUE: Real-time focused scanning was performed of the abdomen, with image documentation. COMPARISON: [facility], CT, CT ABD PELVIS W CON, 03/31/2017, 17:42. FINDINGS: As was the case during CT scanning yesterday late afternoon multiple liver masses are seen within the right hepatic lobe the largest of which measures up to 3.6 cm. The gallbladder wall is slightly thickened at 3.1 mm, and there is no adjacent pericholecystic free fluid. The common duct is not distended measuring 2.8 mm. IMPRESSION: Multiple malignant appearing liver masses. This is equivalent to that seen during CT scanning one day ago. Limited quality of visualization for this right upper quadrant limited ultrasound due to patient's inability to suspend respiration during image acquisition. The patient carries a prior history of lung carcinoma. Dictated by: Kingston Jo M.D. on 04/01/2017 at 9:38 Approved by: Kingston Jo M.D. on 04/01/2017 at 9:50 Assessment & Plan 66-year-old female with reported paranoid delusions who presents due to increasing weakness, general malaise, anorexia, and reported weight loss with diffuse metastases of unknown primary origin # SIRS; present admission; ongoing and improving. Her rate 111, respiratory rate 20, WBC 23.4 on admission. Afebrile. Initial concern for abdominal sepsis resulted in surgical consultation on broad-spectrum antibiotic. Abdominal ultrasound appears to rule out acute cholecystitis. No plans for surgery. She has a urinary infection but is not clear that this accounts for her leukocytosis. -Monitor blood pressure and urinary output # Pyelonephritis, present on admission, ongoing. No symptoms but her history quality is poor. Leukocytosis seems out of proportion. - Await culture and sensitivities - Continue Zosyn until narrowing antibiotics on culture results # Probable Carcinoma unknown primary origin; present admission; ongoing - Presents with weight loss, anorexia over the last month or so; enlarged auricular lymph nodes - CT demonstrated diffuse metastatic disease - liver, lung, spleen - Patient does not believe her diagnosis and family states she has an underlying paranoid delusion - Ultrasound-guided thoracentesis with cytology if possible - Ultrasound liver biopsy if thoracentesis is not feasible # Hypertensive urgency; present admission; ongoing and improving. -Presents with blood pressure 130/72 but quickly increased to greater than 190/ 110 - Labetalol 20 mg ordered for SBP greater than 180 Stable, and/or resolving problems: # Possible Acute cholecystitis; was on admission; resolved. - Ultrasound reveals no bladder wall thickening, but no matt-cholestatic fluid. -Discussed with Dr. Jimenez of surgery; will watch for any decompensation - Initially treated with Zosyn every 8HR - Follow clinically for further abdominal pain # Microcytic hypochromic anemia, chronicity unknown; present on admission; ongoing -MCV and MCH, as well as hemoglobin decreased -Iron studies # Hyponatremia, hypochloremia; present admission; resolving. -Unsure chronicity, very small anion gap of 18 -Monitor sodium closely, will add urine osmolality and sodium. # Hyperglycemia; present admission; ongoing and improving. -No history of diabetes - Discontinued blood glucose checks as she has been normoglycemic Disposition: Patient is being admitted to inpatient status with expected length of stay greater than two midnights due to to severity of presentation, duration of treatment, and risks of adverse events disposition Full code Pain Evaluation: Adequate Pain Control VTE Mechanical Devices: Intermittant Pneumatic CD Resuscitation Status: CPR: Attempt Resuscitation Time spent 45 minutes Kwabena Mueller MD Apr 02, 2017 14:40
--- NOTE | 2017-04-02 16:34 | DRSVH ---
PROCEDURE: X-RAY CHEST ONE VIEW ([id number]) INDICATIONS: rule out procedural Pneumothorax TECHNIQUE: One view of the chest was acquired. COMPARISON: [facility], US, ABDOMEN LTD, 04/01/2017, 0:58. [facility], CT, C T ABD PELVIS W CON, 03/31/2017, 17:42. FINDINGS: Surgical changes and devices: None. Lungs and pleura: No pneumothorax after left thoracentesis. Lungs are edematous and there is consol idation at the left lower lobe. Mediastinum: Mediastinal contours appear normal. Heart size is normal. Bones and chest wall: No suspicious bony lesions. Overlying soft tissues appear unremarkable. IMPRESSION: No pneumothorax after left thoracentesis, consolidation left lower lobe likely represents a combination of atelectasis and pleural effusion in that area. Dictated by: Kingston Jo M.D. on 04/02/2017 at 16:28 Approved by: Kingston Jo M.D. on 04/02/2017 at 16:31
--- NOTE | 2017-04-02 17:16 | DRSVH ---
PROCEDURE: US GUIDED THORACENTESIS BY REFERRING PHYSICIAN ([id number]) INDICATIONS: malignancy versus empyema TECHNIQUE: The indications, alternatives, benefits, risks, and complications of the procedure were explained to the patient. Written informed consent was obtained and placed in the chart. The chest was examined sonographically, and an appropriate site was chosen for thoracentesis. The skin was prepared and jimbo ped in the usual sterile fashion, and 1% lidocaine was infiltrated from the skin down through the ple ural surface. A 19-gauge catheter-covered needle was then introduced into the pleural space, the cat heter was advanced and the needle was withdrawn, and thereafter pleural fluid was aspirated. The cat heter was then removed and a dressing was applied. The attending physician was present, and personal ly performed the procedure. COMPARISON: None. FINDINGS: Access site: Left hemithorax. Needle: One-Step centesis catheter with introducer needle. Fluid volume and description: Fluid sent for cytology, multiple chemistry panels and therapeutic jimbo inage. Fluid sent for diagnostic testin cc of clear pleural fluid. Medications: 1% lidocaine for local anaesthesia. Complications: None; post-procedural chest radiograph is pending to assess for pneumothorax. IMPRESSION: Successful ultrasound-guided thoracentesis. Dictated by: Abdirahman FARIAS Interpreted: Meghan Arce MD on 04/02/2017 at 17:01 Approved by: Meghan Arce M.D. on 04/02/2017 at 17:14
[2017-04-02 17:55] LABS: TOTAL PROTEIN,PLEURAL FLUID 2.9 g/dL
[2017-04-02] MEDS ORDERED: Nitroglycerin 2% 1 Gm Ointment TOPICAL PRN (19:05)
[2017-04-02 19:34] LABS: BFWBC 179 /mm3; MONOCYTES,BODY FLUID 24 %
[2017-04-02 19:35] LABS: OTHER CELLS,BODY FLUID 8
[2017-04-02] MEDS ORDERED: Labetalol 5 mg/mL 20 mL Inj IVPUSH PRN (20:30)
[2017-04-03] VITALS (11 sets, daily range): BP systolic 138–188; BP diastolic 91–106; PULSE 78–105; RESP 15–20; O2SAT 88–100
[2017-04-03] MEDS: oxyCODONE ER 10 mg ER12 Tablet PO SCH (02:06)
[2017-04-03 04:31] LABS: Mean Corpuscular Hemoglobin 19.4 pg (27.0-35.0); Mean Corpuscular Volume 60.2 fL (81-100)
[2017-04-03] MEDS: Piperacillin-Tazo 3.375 Gm Inj 3.375 GM in Dextrose 5% Minibag Plus 50 ML IV SCH (05:28)
[2017-04-03] MEDS: Heparin 5,000 Unit/mL Inj SUBQ SCH (08:11)
[2017-04-03] MEDS: MeTOProlol XL 25 mg ER24 Tablet PO SCH (08:11)
[2017-04-03] MEDS: Polyethylene Glycol (PEG) 17 Gm Powder PO SCH (08:11)
[2017-04-03] MEDS: Trimethoprim-Sulfa 160 mg-800 mg Tablet PO SCH ×2 (09:15→20:27)
--- NOTE | 2017-04-03 16:46 | PCM.PNMED ---
Subjective Date of Service Apr 03, 2017 Subjective 66-year-old woman with poorly characterized chronic psychiatric disorder presents with 1 month of weakness and weight loss, abdominal pain evaluation, and found to have metastatic lesions of unknown primary origin. She reported some abdominal pain earlier this morning but no abdominal pain from mid morning to afternoon. She reports pain in back of neck due to using hair machine operator. She denies feeling fevers or chills. She appears comfortable. Not eating very much, because she does not like the food. Daughter expressing concerns about level of care she requires at home. Exam Vital Signs Vital Sign - Last Date Time Temp Pulse Resp B/P Pulse Ox O2 Delivery O2 Flow Rate FiO2 04/03/17 12:39 36.9 93 16 138/94 98 Nasal Cannula 1.00 Intake and Output 04/02/17 04/02/17 04/03/17 Cumulative From/Thru 15:00 23:00 07:00 03/31/17 13:22 - 04/03/17 05:03 Intake Total 188 ml 122 ml 5259 ml Output Total 500 ml 2550 ml Balance 188 ml -378 ml 2709 ml Intake Oral 50 ml 1170 ml IV Total 188 ml 72 ml 4089 ml Output Urine Total 500 ml 2550 ml # Voids 3 # Bowel Movements 0 Exam General: Responds to questions, no acute distress HEENT: sclerae anicteric, oral mucosa moist Neck: no JVD Chest: Poor inspiratory effort, Bibasilar crackles right greater than left Cardiac: S1S2, no murmur Abdomen: BS normal, non-tender, not distended Extremities: No pedal edema Neuro: Alert but does not seem fully oriented, possibly language and psychiatric impediments, cranial nerves symmetric, motor strength 4/5, coordination generally normal Lab and Diagnostics Result Diagram: 04/03/17 0340 04/02/17 0240 Microbiology Specimen: [id number] Collected: 03/31/17 Status: RES Req#: [id number] Received: 03/31/17 Source: URINE CC Sp Desc : ZAY Sage Dr: Stepan Jameson PAC Ordered: URINE CULT Procedure Result Verified Site Microbiology MAME CULT URINE Preliminary 04/01/17-0650 PRELIMINARY ID GRAM NEGATIVE AJ ID AND SENS TO FOLLOW COLONY COUNT/QUANTITY >100,000 CFU/ml X-Rays, CTs and MRIs CT of abdomen IMPRESSION: 1. Multiple hypovascular liver metastases of uncertain primary neoplasm. Additional solitary smaller medial splenic lesion is also suspicious for metastasis. 2. Numerous small right lung base metastases, as well as larger 2.6 cm left lower lobe mass lesion (possibly primary bronchogenic neoplasm). Consider contrast-enhanced chest CT to evaluate for more lesions within the mid and superior thorax when clinically feasible. 3. Small left basal pleural effusion is presumably malignant, along with several irregular enhancing left pleural lesions suspicious for metastases. Ultrasound-guided diagnostic left thoracentesis may be considered for further evaluation. 4. Numerous sclerotic bony metastases involve the lumbar and lower thoracic spine, as well as the sacrum and pelvic ring. 5. Circumferential gallbladder wall thickening and/or pericholecystic fluid may suggest acute cholecystitis in the appropriate clinical setting. Dictated by: Zia Grace M.D. on 03/31/2017 at 18:13 Date of Service: 04/01/17 0030 PROCEDURE: US ABDOMEN, LIMITED ([id number]) INDICATIONS: Septic gallbladder TECHNIQUE: Real-time focused scanning was performed of the abdomen, with image documentation. COMPARISON: [facility], CT, CT ABD PELVIS W CON, 03/31/2017, 17:42. FINDINGS: As was the case during CT scanning yesterday late afternoon multiple liver masses are seen within the right hepatic lobe the largest of which measures up to 3.6 cm. The gallbladder wall is slightly thickened at 3.1 mm, and there is no adjacent pericholecystic free fluid. The common duct is not distended measuring 2.8 mm. IMPRESSION: Multiple malignant appearing liver masses. This is equivalent to that seen during CT scanning one day ago. Limited quality of visualization for this right upper quadrant limited ultrasound due to patient's inability to suspend respiration during image acquisition. The patient carries a prior history of lung carcinoma. Dictated by: Kingston Jo M.D. on 04/01/2017 at 9:38 Approved by: Kingston Jo M.D. on 04/01/2017 at 9:50 Assessment & Plan 66-year-old female with poorly defined psychiatric disorder who presents due to increasing weakness, general malaise, anorexia, and reported weight loss with diffuse metastases of unknown primary origin # SIRS; present admission; ongoing and improving. Heart rate 111, respiratory rate 20, WBC 23.4 on admission. Persistently Afebrile. Now with normal vital signs. Initial concern for abdominal sepsis resulted in surgical consultation on broad-spectrum antibiotic. Abdominal ultrasound appears to rule out acute cholecystitis. She has no persistent abdominal pain, fever, hyperbilirubinemia. No plans for surgery. She has a urinary infection but is not clear that this accounts for her leukocytosis. Persistent leukocytosis mostly due to cancer. - Resolved # Pyelonephritis, present on admission, ongoing. No symptoms but her history quality is poor. Leukocytosis seems out of proportion. Limited systemic signs and symptoms. 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 Presents with weight loss, anorexia over the last month or so. CT demonstrated diffuse metastatic disease - liver, lung, spleen. Diagnostic thoracentesis performed on 04/02. Transudative chemistries. - Oncology consult Dr. Ac - Patient does not believe her diagnosis; is not clear whether she will pursue and comply with further cancer care - Plan to discharge patient home for outpatient follow-up of pleural cytology, further referral for liver biopsy as outpatient if needed. # Hypertensive urgency; present admission; ongoing and improving. Initially managed with IV labetalol during acute abdominal distress. Now with increased metoprolol, lisinopril, amlodipine and her hydrochlorothiazide - Continue augmented antihypertensive therapy and plan to discharge with no prescriptions # Goals of care. Interviewed at length with Yakut tinner helper on 04/03. She has limited insight into health issues. She states that she does not want further biopsy, but would like medical conditions to be treated with pain pills. She seemed to acknowledge cancer but did not endorse that she has cancer. - It is unclear whether the patient is decisional, but certainly lacks insight into her medical issues - Her behavioral issues appear to be cultural, linguistic and psychological but I do not see evidence of an acute psychiatric disorder. Stable, and/or resolving problems: # Possible Acute cholecystitis; was on admission; resolved. - Ultrasound reveals no bladder wall thickening, but no matt-cholestatic fluid. -Discussed with Dr. Jimenez of surgery; will watch for any decompensation - Initially treated with Zosyn every 8HR - Follow clinically for further abdominal pain # Microcytic hypochromic anemia, chronicity unknown; present on admission; ongoing -MCV and MCH, as well as hemoglobin decreased -Iron studies # Hyponatremia, hypochloremia; present admission; resolving. -Unsure chronicity, very small anion gap of 18 -Monitor sodium closely, will add urine osmolality and sodium. # Hyperglycemia; present admission; ongoing and improving. -No history of diabetes - Discontinued blood glucose checks as she has been normoglycemic Disposition: food and beverage manager referral requested due to daughter's inability to care for her mother due to family systems psychological issues. Patient is being admitted to inpatient status with expected length of stay greater than two midnights due to to severity of presentation, duration of treatment, and risks of adverse events disposition. Full code VTE Mechanical Devices: Intermittant Pneumatic CD Resuscitation Status: CPR: Attempt Resuscitation Time spent 75 minutes Kwabena Mueller MD Apr 03, 2017 16:46
[2017-04-03] MEDS ORDERED: oxyCODONE-Acetamin 5-325 mg Tablet PO ONE (21:45)
[2017-04-03] MEDS ORDERED: oxyCODONE ER 10 mg ER12 Tablet PO ONE (23:30)
[2017-04-04] VITALS (7 sets, daily range): BP systolic 130–165; BP diastolic 73–96; PULSE 76–94; RESP 13–20; O2SAT 96–100
--- NOTE | 2017-04-04 05:56 | CONS ---
[address] [address] CONSULTATION REPORT PATIENT: ELLIS GREENBERG : 1950 MR#: [id number] ADMIT: 03/31/2017 JOB ID: [id number] DATE OF SERVICE: 04/03/2017 INPATIENT MEDICAL ONCOLOGY CONSULTATION: REQUESTING PROVIDER: Kwabena Mueller MD REASON FOR CONSULTATION: Metastatic malignancy. HISTORY OF PRESENT ILLNESS: Today, I primarily discussed the patient's case with her daughter, Ildefonso, and her grandson, Sam. The patient herself does not speak much Surinamese and was not very interactive. This is a 66-year-old, [place] woman who just about two weeks ago moved here from [place] to live permanently with her daughter. She does not have established medical care. She has been traveling between and [facility] in the last few years. She speaks very little Surinamese. Additionally, there is some background mental illness that is not clearly diagnosed, but her daughter and grandson indicate chronic history of paranoia and paranoid thoughts. After she moved here about two weeks ago, her daughter noticed that the patient was getting gradually weaker and weaker. She noticed a poor appetite and gradual weight loss. Eventually, the family brought her to the emergency department on March 31. The patient complained of lack of bowel movement for one week. These led to CT scan of abdomen and pelvis with contrast on March 31 and that unfortunately showed multiple liver metastases, the largest one measuring 4.1 cm in the inferior right hepatic lobe. Additionally, there are numerous small right lung base nodules and a larger mass measuring 2.6 cm in the left lower lobe associated with left-sided pleural effusion and compressive atelectasis. There were some irregular enhancing pleural lesions on the left side, the largest 2.5 cm. There was no retroperitoneal or mesenteric adenopathy. There were multiple sclerotic bone lesions involving the lower thoracic spine and lumbar vertebral bodies, and additional sclerotic lesions involving the sacrum and bilateral pelvic ring. Her labs have showed persistent leukocytosis, persistent anemia and normal platelet count. LDH is elevated, today 254 (normal up to 190). Albumin is low at 2.9. Alkaline phosphatase is elevated, but the rest of liver function panel is normal. Sodium is low at 133. Yesterday, ultrasound-guided thoracentesis of the left side was performed with removal of 180 cc clear pleural fluid. This is transudate by LDH and protein criteria. Cytology is pending. PAST MEDICAL HISTORY: Unknown. HOME MEDICATIONS: None. ALLERGIES: NKDA. SOCIAL HISTORY: She is . She does not smoke and does not use alcohol. She has never smoked. PHYSICAL EXAMINATION: She appears cachectic. She does not interact very much. Blood pressure 148/94, heart rate 94, temperature afebrile. HEENT: Normal. Lungs: Grossly normal breath sounds. Cardiac: Regular rate and rhythm. Abdomen: Soft and nontender, without palpable mass. Lower extremities: No edema. IMPRESSION AND PLAN: A 66-year-old woman with a very complex social and family situation, presenting with progressive weakness, anorexia and weight loss and diagnosed with some form of metastatic malignancy. The primary source is unclear. Primary lung cancer is in differential given that she has had a relatively large mass in left lower lobe associated with pleural metastases on that side. Of course, primary lung adenocarcinoma can occur among lifetime nonsmokers. So far, we have collected the left-sided pleural fluid with cytology still pending, but this is a transudate, and I think that diagnostic yield would be probably low. If diagnosis could not be established by a pleural fluid, or if it showed adenocarcinoma, but inadequate specimen for additional testing, the patient will need a liver biopsy to obtain solid core samples. The patient does not have an established home. She just recently moved to [place]. Her relationship with her daughter is not perfect and she has some longstanding paranoid personality, at least as reported by her family. Caring for her could be very complex and difficult. Her daughter is worried about taking care of her at home, and this is quite overwhelming for her. We need to discuss possible placement in care home or a SNF with her, and I understand that is going on currently. I will return tomorrow for followup.
[2017-04-04] MEDS: Polyethylene Glycol (PEG) 17 Gm Powder PO SCH ×2 (08:30→19:43)
[2017-04-04 08:51] LABS: Mean Corpuscular Hemoglobin 19.4 pg (27.0-35.0); Mean Corpuscular Volume 59.2 fL (81-100)
[2017-04-04] MEDS: Trimethoprim-Sulfa 160 mg-800 mg Tablet PO SCH ×2 (10:56→19:43)
[2017-04-04] MEDS: MeTOProlol XL 25 mg ER24 Tablet PO SCH (10:57)
--- NOTE | 2017-04-04 15:33 | PCM.PNMED ---
Subjective Date of Service Apr 04, 2017 Subjective 66-year-old woman with poorly characterized mental health disorder presents with 1 month of weakness and weight loss, abdominal pain evaluation, and found to have metastatic lesions of unknown primary origin. She reports pain, and likes to use her rating scale but is unable to specify where the pain is located. She converses and moves about comfortably. States she has an appetite. Not eating very much, because she does not like the food. Daughter expressing concerns about level of care she requires at home. Patient requesting to stay in the hospital until assisted living housing can be found. Exam Vital Signs Vital Sign - Last Date Time Temp Pulse Resp B/P Pulse Ox O2 Delivery O2 Flow Rate FiO2 04/04/17 12:37 36.7 88 15 157/96 100 Room Air 04/04/17 08:41 1.00 Intake and Output 04/03/17 04/03/17 04/04/17 Cumulative From/Thru 15:00 23:00 07:00 03/31/17 13:22 - 04/04/17 06:17 Intake Total 680 ml 300 ml 6239 ml Output Total 950 ml 800 ml 4300 ml Balance -270 ml -500 ml 1939 ml Intake Oral 680 ml 300 ml 2150 ml IV Total 4089 ml Output Urine Total 950 ml 800 ml 4300 ml # Voids 2 5 # Bowel Movements 0 Exam General: no acute distress HEENT: sclerae anicteric, oral mucosa moist Neck: no JVD Chest: Poor inspiratory effort, basilar crackles Cardiac: S1S2, no murmur Abdomen: BS normal, non-tender, not distended Extremities: No pedal edema Neuro: Generally appropriate conversation with Mauritian latex fashions designer, poor insight into her medical condition, cranial nerves symmetric, motor strength 4/5 , coordination generally normal IVs and Medications Medications Reviewed: Medications were reviewed in detail Lab and Diagnostics Result Diagram: 04/04/17 0841 04/02/17 0240 Microbiology Specimen: [id number] Collected: 03/31/17 Status: COMP Req#: [id number] Received: 03/31/17 Source: URINE CC Sp Desc : PP Subm Dr: Stepan Jameson PAC Ordered: URINE CULT Procedure Result Verified Site Microbiology MAME CULT URINE Final 04/03/17-639 Organism 1 ENTEROBACTER AEROGENES U COLONY COUNT/QUANTITY >100,000 CFU/ml 1. ENTEROBACTER AEROGENES M.I.C Interp --------- ------ * AMOXICILLIN/CLAVULATE R * CEFEPIME <=1 S * CEFTRIAXONE <=1 S * CEFUROXIME SODIUM R * CIPROFLOXACIN <=0.25 S * ERTAPENEM <=0.5 S * GENTAMICIN <=1 S * LEVOFLOXACIN <=0.12 S * NITROFURANTOIN 64 I * TETRACYCLINE <=1 S * TOBRAMYCIN <=1 S * TRIMETHOPRIM/SULFAMETHOXAZOLE <=20 S . X-Rays, CTs and MRIs CT of abdomen IMPRESSION: 1. Multiple hypovascular liver metastases of uncertain primary neoplasm. Additional solitary smaller medial splenic lesion is also suspicious for metastasis. 2. Numerous small right lung base metastases, as well as larger 2.6 cm left lower lobe mass lesion (possibly primary bronchogenic neoplasm). Consider contrast-enhanced chest CT to evaluate for more lesions within the mid and superior thorax when clinically feasible. 3. Small left basal pleural effusion is presumably malignant, along with several irregular enhancing left pleural lesions suspicious for metastases. Ultrasound-guided diagnostic left thoracentesis may be considered for further evaluation. 4. Numerous sclerotic bony metastases involve the lumbar and lower thoracic spine, as well as the sacrum and pelvic ring. 5. Circumferential gallbladder wall thickening and/or pericholecystic fluid may suggest acute cholecystitis in the appropriate clinical setting. Dictated by: Zia Grace M.D. on 03/31/2017 at 18:13 Date of Service: 04/01/17 0030 PROCEDURE: US ABDOMEN, LIMITED ([id number]) INDICATIONS: Septic gallbladder TECHNIQUE: Real-time focused scanning was performed of the abdomen, with image documentation. COMPARISON: [facility], CT, CT ABD PELVIS W CON, 03/31/2017, 17:42. FINDINGS: As was the case during CT scanning yesterday late afternoon multiple liver masses are seen within the right hepatic lobe the largest of which measures up to 3.6 cm. The gallbladder wall is slightly thickened at 3.1 mm, and there is no adjacent pericholecystic free fluid. The common duct is not distended measuring 2.8 mm. IMPRESSION: Multiple malignant appearing liver masses. This is equivalent to that seen during CT scanning one day ago. Limited quality of visualization for this right upper quadrant limited ultrasound due to patient's inability to suspend respiration during image acquisition. The patient carries a prior history of lung carcinoma. Dictated by: Kingston Jo M.D. on 04/01/2017 at 9:38 Approved by: Kingston Jo M.D. on 04/01/2017 at 9:50 Assessment & Plan 66-year-old female with poorly defined psychiatric disorder who presents due to increasing weakness, general malaise, anorexia, and reported weight loss with diffuse metastases of unknown primary origin # Probable Carcinoma unknown primary origin; present admission; ongoing. Presents with weight loss, anorexia over the last month or so. CT demonstrated diffuse metastatic disease - liver, lung, spleen. Diagnostic thoracentesis performed on 04/02. Transudative chemistries. - Oncology consult Dr. Ac - Cytopathology from thoracentesis on 04/02 is pending - May need follow-up fine-needle aspiration of liver lesions if pleural cytology is negative; be performed in ambulatory setting # Hypertensive urgency; present admission; ongoing and improving. Initially managed with IV labetalol during acute abdominal distress. Now with increased metoprolol, lisinopril, amlodipine and her hydrochlorothiazide - Continue augmented antihypertensive therapy and plan to discharge with new prescriptions # Leukocytosis, present on admission. Overall infectious picture seems to be resolving but aggressive cytosis is persistent. Presumed neoplastic leukocytosis. - Follow clinically # Goals of care. Interviewed at length with Mauritian latex fashions designer on 04/03 & . She has limited insight into health issues. At this point she does not object to suggestions that she has cancer, and maybe understands this to be the case. She would like medical conditions to be treated with pain pills. She would like to remain in the hospital while her cancer under treatment.. - Overall I believe the patient is decisional albeit with very poor insight into her health issues - Her behavioral issues appear to be cultural, linguistic and psychological but I do not see evidence of an acute psychiatric disorder. # Social supports. Daughter and patient feel that returned to the daughter's home is problematic. Other options and reviewed thoroughly by social work. We will apply for esmer and home health RN 3 times per week for medication compliance and vital sign assessment. We will assist with applications for assisted living or SNF placement, but this will not be rate limiting for discharge to her daughter's home. - Advised family of need to discharge home on 04/05 Stable, and/or resolving problems: # Pyelonephritis, present on admission, ongoing. No symptoms but her history quality is poor. Leukocytosis seems out of proportion. Limited systemic signs and symptoms. - Enterobacter beta-lactam resistant - Discontinued Zosyn after 3 days; switch to Bactrim to complete 10 days therapy for acute pyelonephritis # SIRS; present admission; ongoing and improving. Heart rate 111, respiratory rate 20, WBC 23.4 on admission. Persistently Afebrile. Now with normal vital signs. Initial concern for abdominal sepsis resulted in surgical consultation on broad-spectrum antibiotic. Abdominal ultrasound appears to rule out acute cholecystitis. She has no persistent abdominal pain, fever, hyperbilirubinemia. No plans for surgery. She has a urinary infection but is not clear that this accounts for her leukocytosis. Persistent leukocytosis mostly due to cancer. - Resolved # Possible Acute cholecystitis; was on admission; resolved. - Ultrasound reveals no bladder wall thickening, but no matt-cholestatic fluid. -Discussed with Dr. Jimenez of surgery; will watch for any decompensation - Initially treated with Zosyn every 8HR - Follow clinically for further abdominal pain # Microcytic hypochromic anemia, chronicity unknown; present on admission; ongoing -MCV and MCH, as well as hemoglobin decreased -Chronic disease anemia # Hyponatremia, hypochloremia; present admission; resolving. -Unsure chronicity, very small anion gap of 18 -Monitor sodium closely, will add urine osmolality and sodium. # Hyperglycemia; present admission; ongoing and improving. -No history of diabetes - Discontinued blood glucose checks as she has been normoglycemic Disposition: manager nursing home referral requested due to daughter's inability to care for her mother due to family systems psychological issues. Patient is being admitted to inpatient status with expected length of stay greater than two midnights due to to severity of presentation, duration of treatment, and risks of adverse events disposition. Full code VTE Mechanical Devices: Intermittant Pneumatic CD Resuscitation Status: CPR: Attempt Resuscitation Time spent 45 minutes Kwabena Mueller MD Apr 04, 2017 15:33
--- NOTE | 2017-04-04 20:46 | PROG NOTE ---
[address] [address] PROGRESS NOTE PATIENT: ELLIS GREENBERG : 1950 MR#: [id number] ADMIT: 03/31/2017 JOB ID: [id number] DATE: 04/04/2017 INPATIENT MEDICAL ONCOLOGY PROGRESS REPORT: SUBJECTIVE: The patient appears comfortable, but was not able to communicate with me, and family and portrait painter were not available. OBJECTIVE: Cachectic appearing, but in no discomfort, resting in bed. Vital signs are all normal. LABORATORY DATA: Leukocytosis is unchanged. Anemia is improving, raising suspicion for hemoconcentration. Cytology from pleural fluid is pending. IMPRESSION AND RECOMMENDATIONS: The patient is clinically stable. She does have stage 4 cancer, but the type and origin remain pending further pathology information. Will wait for the cytology results from the pleural fluid; but, given that it was transudate, it will likely be nondiagnostic. In that case, or if complete set of diagnostic tests could not be done on pleural fluid, then additional biopsy will be needed. All of this can be done as outpatient. I agree with discharge tomorrow if a facility can be arranged. I contacted Sam, her grandson, and will stay in touch with him. We will schedule outpatient oncology followup next week, or at the latest the following week. I think the patient is dehydrated, otherwise I would not expect rising hemoglobin in a patient with metastatic cancer and admitted to hospital. Consider IV hydration.
[2017-04-05 00:18] VITALS: BP 148/89; PULSE 85; RESP 16; O2SAT 99
[2017-04-05 04:02] VITALS: BP 147/65; PULSE 88; RESP 15; O2SAT 100
[2017-04-05 05:35] VITALS: PULSE 82
[2017-04-05] MEDS: Polyethylene Glycol (PEG) 17 Gm Powder PO SCH (08:30)
[2017-04-05 08:45] VITALS: PULSE 110
[2017-04-05 09:09] VITALS: BP 153/92; PULSE 92; RESP 14; O2SAT 98
[2017-04-05] MEDS: Trimethoprim-Sulfa 160 mg-800 mg Tablet PO SCH (09:11)
[2017-04-05] MEDS: MeTOProlol XL 25 mg ER24 Tablet PO SCH (09:11)
[2017-04-05] MEDS ORDERED: LISI-567 PO (12:27)
[2017-04-05] MEDS ORDERED: SULF1TAB35 PO (12:27)
[2017-04-05] MEDS ORDERED: AMLO10TA3 PO (12:27)
[2017-04-05] MEDS ORDERED: METO-272 PO (12:27)
--- NOTE | 2017-04-05 12:31 | PCM.DIMED ---
Discharge Instructions Date of Service Apr 05, 2017 Dates of Hospitalization Mar 31, 2017 at 20:51 Discharge Diagnosis Discharge Diagnosis Uncontrolled hypertension, Pyelonephritis, Metastatic cancer of uncertain origin Medication Instructions Additional med instructions There are 3 new medications amlodipine, lisinopril and metoprolol to help control your severe high blood pressure. Take these medicines regularly. Have your blood pressure checked with your doctor in the next week. He had an infection in the urine and kidneys. You should take the antibiotic Bactrim twice per day for 5 more days then stop. Diet Discharge Diet: No restrictions, Other (encourage water drinking and adequate calories) Activity Discharge Activity: No restrictions Patient Instructions Patient Instructions Contact your primary care doctor for an appointment within 1 week to check your blood pressure Follow-up plan Contact Dr. Ac at the oncology clinic on Friday to arrange a follow-up appointment. You may need an appointment for a liver biopsy if the results of your pleural fluid tests are negative. Dr. Ac's office will arrange this. Follow-up Provider: Ej Ac MD Follow-up with PCP in: 1 week Kwabena Mueller MD Apr 05, 2017 12:31
--- NOTE | 2017-04-05 18:28 | PCM.DC.MED ---
Discharge Summary Date of Service Apr 05, 2017 Dates of Hospitalization Date of Hospital Admission Mar 31, 2017 at 20:51 Date of Discharge: Apr 05, 2017 Providers: Admitting Physician: Starr Chinchilla DO Primary Care Physician: Nopdorian Attending Physician: Rafal Phillips MD Diagnosis at Time of Discharge Diagnosis at Time of Discharge Uncontrolled hypertension, Pyelonephritis, Metastatic cancer of uncertain origin Consultations Oncology Dr. Ac Procedures XRay, CTs & MRIs CT of abdomen IMPRESSION: 1. Multiple hypovascular liver metastases of uncertain primary neoplasm. Additional solitary smaller medial splenic lesion is also suspicious for metastasis. 2. Numerous small right lung base metastases, as well as larger 2.6 cm left lower lobe mass lesion (possibly primary bronchogenic neoplasm). Consider contrast-enhanced chest CT to evaluate for more lesions within the mid and superior thorax when clinically feasible. 3. Small left basal pleural effusion is presumably malignant, along with several irregular enhancing left pleural lesions suspicious for metastases. Ultrasound-guided diagnostic left thoracentesis may be considered for further evaluation. 4. Numerous sclerotic bony metastases involve the lumbar and lower thoracic spine, as well as the sacrum and pelvic ring. 5. Circumferential gallbladder wall thickening and/or pericholecystic fluid may suggest acute cholecystitis in the appropriate clinical setting. Dictated by: Zia Grace M.D. on 03/31/2017 at 18:13 PROCEDURE: US ABDOMEN, LIMITED ([id number]) IMPRESSION: Multiple malignant appearing liver masses. This is equivalent to that seen during CT scanning one day ago. Limited quality of visualization for this right upper quadrant limited ultrasound due to patient's inability to suspend respiration during image acquisition. The patient carries a prior history of lung carcinoma. Dictated by: Kingston Jo M.D. on 04/01/2017 at 9:38 PROCEDURE: US GUIDED THORACENTESIS BY REFERRING PHYSICIAN ([id number]) FINDINGS: Access site: Left hemithorax. Needle: One-Step centesis catheter with introducer needle. Fluid volume and description: Fluid sent for cytology, multiple chemistry panels and therapeutic drainage. Fluid sent for diagnostic testin cc of clear pleural fluid. Medications: 1% lidocaine for local anaesthesia. Complications: None; post-procedural chest radiograph is pending to assess for pneumothorax. Dictated by: Abdirahman Cruz Haily Interpreted: Meghan Arce MD on 04/02/2017 at 17:01 PROCEDURE: X-RAY CHEST ONE VIEW ([id number]) IMPRESSION: No pneumothorax after left thoracentesis, consolidation left lower lobe likely represents a combination of atelectasis and pleural effusion in that area. Dictated by: Kingston oJ M.D. on 04/02/2017 at 16:28 . Brief History History obtained from family as patient is a poor historian. 66-year-old female with reported paranoid delusions presents emergency department due to progressive weakness and weight loss over the last month, with rapid decline over the last 2 weeks. Per patient report, she recently returned from [place] (March 18) with a week long stay in [place]. Upon leaving [facility] she had started to become more warm down, but after her one- week stay in [place] she began having severe weakness with very little exertional capacity. since being here with her daughter she has continued decline more rapidly and is currently anorexic. She denies ongoing fever, chills, nausea, vomiting, diarrhea, right upper quadrant pain; she does state that she has diffuse abdominal tenderness, has noticed a weight loss in the last month but is unable to say how much. She denies any night sweats or neurological sequelae. In the ED CT of the abdomen was obtained which showed very diffuse metastatic disease in the abdomen and lungs with unknown primary. Patient also has questionable cholecystitis diagnosed by CT, which is not ideal, but also has leukocytosis and elevated LFTs. Called surgery may Dr. Jimenez aware of the situation and he requests an ultrasound of the right upper quadrant. At this time I did not ask him to see the patient urgently but he will follow-up in the a.m. when the ultrasound was completed. Hospital Course 66-year-old female with poorly defined psychiatric disorder who presents due to increasing weakness, general malaise, anorexia, and reported weight loss with diffuse metastases of unknown primary origin # Probable Carcinoma unknown primary origin; present admission; ongoing. Presents with weight loss, anorexia over the last month or so. CT demonstrated diffuse metastatic disease - liver, lung, spleen. Diagnostic thoracentesis performed on 04/02. Transudative chemistries. - Oncology consult Dr. Ac - Thoracentesis chemistries were transitive with LDH 71, total protein 2.9, glucose 127. Cell counts 425 RBC with 179 WBC 38% polymorphonuclear. - Cytopathology from thoracentesis on 04/02 is pending at time of discharge - May need follow-up fine-needle aspiration of liver lesions if pleural cytology is negative; be performed in ambulatory setting # Hypertensive urgency; present admission; ongoing and improving. Initially managed with IV labetalol during acute abdominal distress. Now with increased metoprolol, lisinopril, amlodipine and her hydrochlorothiazide - Continue augmented antihypertensive therapy and plan to discharge with multiple new prescriptions # Leukocytosis, present on admission. Although patient had acute urinary infection she was afebrile and leukocytosis was disproportionate. Presumed neoplastic leukocytosis. - Follow clinically # Goals of care. Interviewed at length with [place] aerial photograph interpreter on 04/03 & . She has limited insight into health issues. At this point she does not object to suggestions that she has cancer, and maybe understands this to be the case. She would like medical conditions to be treated with pain pills. She would like to remain in the hospital while her cancer under treatment.. - Overall I believe the patient is decisional albeit with very poor insight into her health issues - Her behavioral issues appear to be cultural, linguistic and psychological but I do not see evidence of an acute psychiatric disorder. # Social supports. Daughter and patient feel that returned to the daughter's home is problematic. Other options and reviewed thoroughly by social work. We will apply for esmer and home health RN 3 times per week for medication compliance and vital sign assessment. We will assist with applications for assisted living or SNF placement, but this will not be rate limiting for discharge to her daughter's home. - Social work consult provided guidance and resources regarding arranging assisted living setting for the patient # Pyelonephritis, present on admission, ongoing. No symptoms but her history quality is poor. Leukocytosis seems out of proportion. Limited systemic signs and symptoms. - Enterobacter beta-lactam resistant - Discontinued Zosyn after 3 days; switch to Bactrim to complete 10 days therapy for acute pyelonephritis # SIRS; present admission; ongoing and improving. Heart rate 111, respiratory rate 20, WBC 23.4 on admission. Persistently Afebrile. Now with normal vital signs. Initial concern for abdominal sepsis resulted in surgical consultation on broad-spectrum antibiotic. Abdominal ultrasound appears to rule out acute cholecystitis. She has no persistent abdominal pain, fever, hyperbilirubinemia. No plans for surgery. She has a urinary infection but is not clear that this accounts for her leukocytosis. Persistent leukocytosis mostly due to cancer. - Resolved # Possible Acute cholecystitis; was on admission; resolved. - Ultrasound reveals no bladder wall thickening, but no matt-cholestatic fluid. -Discussed with Dr. Jimenez of surgery; will watch for any decompensation - Initially treated with Zosyn every 8HR - Diagnosis of acute cholecystitis was ruled out # Microcytic hypochromic anemia, chronicity unknown; present on admission; ongoing -MCV and MCH, as well as hemoglobin decreased -Chronic disease anemia # Hyponatremia, hypochloremia; present admission; resolving. -Unsure chronicity, very small anion gap of 18 -Monitor sodium closely, will add urine osmolality and sodium. # Hyperglycemia; present admission; ongoing and improving. -No history of diabetes - Discontinued blood glucose checks as she has been normoglycemic Disposition: manager [facility] referral requested due to daughter's inability to care for her mother due to family systems psychological issues. Patient did not qualify for [facility] facility placement at this time. Exam Vital Signs (Last) Date Time Temp Pulse Resp B/P Pulse Ox O2 Delivery O2 Flow Rate FiO2 04/05/17 09:24 Supplement Oxygen 04/05/17 09:09 36.8 92 14 153/92 98 04/04/17 08:41 1.00 Exam General: no acute distress HEENT: sclerae anicteric, oral mucosa moist Neck: no JVD Chest: Poor inspiratory effort, basilar crackles Cardiac: S1S2, no murmur Abdomen: BS normal, non-tender, not distended Extremities: No pedal edema Neuro: Alert calm and communicative, cranial nerves symmetric, motor strength 4/ 5, coordination generally normal Test 03/31/17 14:05 03/31/17 16:31 04/01/17 03:50 04/01/17 11:55 Hemoglobin A1c 6.3% (4.8-5.6) Urine Color Yellow (YELLOW) Urine Appearance Cloudy (CLEAR,HAZY) Urine pH 5.5 (5.0-8.0) Urine Specific [place] 1.024 (1.003-1.035) Urine Protein 100mg/dL (NEG,TRACE) Urine Glucose (UA) Negativemg/dL (NEGATIVE) Urine Ketones Negativemg/dL (NEGATIVE) Urine Occult Blood Trace (NEGATIVE) Urine Nitrite Negative (NEGATIVE) Urine Bilirubin Negative (NEGATIVE) Urine Urobilinogen Normalmg/dL (NORMAL) Urine Leukocyte Esterase Trace (NEGATIVE) Urine RBC 0-2/hpf (0-2) Urine WBC 11-50/hpf (0-5) Urine Epithelial Cells Few/hpf (NONE-MOD) Urine Crystals None seen (NONE SEEN) Urine Bacteria Many/hpf (NONE-FEW) Urine Hyaline Casts None/lpf (NONE) Urine Granular Casts None seen (NONE SEEN) Urine Waxy Casts None seen (NONE SEEN) Urine Red Blood Cell Casts None seen (NONE SEEN) Urine White Blood Cell Casts None seen (NONE SEEN) Urine Mucus Present (None Seen) Urine Trichomonas None seen (NONE SEEN) Urine Yeast None (NONE SEEN) Urinalysis Comment Transitional epi Urine Culture Reflexed Indicated Urine Osmolality 611mOs/kH2O (250-1200) Urine Random Sodium 13mEq/L Neutrophils (%) (Auto) 77.6% (40-74) Lymphocytes (%) (Auto) 7.3% (14-46) Monocytes (%) (Auto) 9.4% (4-12) Eosinophils (%) (Auto) 4.8% (0-5) Basophils (%) (Auto) 0.3% (0-3) Hematology Comments Rbc Prothrombin Time 11.4sec (8.1-12.5) Prothromb Time International Ratio 1.06ratio Lactic Acid Level 1.4mmol/L (0.4-2.0) Phosphorus Level 3.5mg/dL (2.5-4.9) Magnesium Level 1.8mg/dL (1.6-2.6) Iron Level 79ug/dL (35-150) Total Iron Binding Capacity 226ug/dL (250-450) Percent Iron Saturation 35%sat (15-50) Unsaturated Iron Binding 146.8ug/dL Total Bilirubin 0.4mg/dL (0.0-1.2) Aspartate Amino Transf (AST/SGOT) 23U/L (0-50) Alanine Aminotransferase (ALT/SGPT) 26U/L (0-32) Alkaline Phosphatase 584U/L (25-165) Albumin 2.9g/dL (3.4-5.0) Triglycerides Level 127mg/dL (0-149) Cholesterol Level 183mg/dL (100-199) LDL Cholesterol, Calculated 109.600mg/dL (0-99) VLDL Cholesterol 25.400mg/dL HDL Cholesterol 48mg/dL (>39) Cholesterol/HDL Ratio 3.81 (0.0-4.4) Procalcitonin 0.26ng/mL (0.00-0.08) Hold Urine Received (Received) Test 04/02/17 17:28 04/02/17 17:30 04/02/17 22:02 04/03/17 03:40 Body Fluid Source Pleural fluid Body Fluid Color Straw (Clear) Body Fluid Appearance Clear Body Fluid WBC 179/mm3 Body Fluid RBC 425/mm3 Body Fluid Polynuclear WBCs 38% Body Fluid Lymphocytes 37% Body Fluid Monocytes 24% Body Fluid Eosinophils 1% Body Fluid Basophils 0% Body Fluid Lactate Dehydrogenase 71U/L Pleural Fluid Total Protein 2.9g/dL Pleural Fluid Glucose 127mg/dL Body Fluid pH 7.0 (Not Estab.) Lactate Dehydrogenase 254U/L (100-190) Total Protein 6.1g/dL (6.4-8.4) Test 04/04/17 08:41 04/05/17 04:40 White Blood Count 20.7th/mm3 (3.8-10.1) Red Blood Count 5.71mil/mm3 (3.90-5.20) Hemoglobin 11.1g/dL (12.0-15.6) Hematocrit 33.8% (35.0-46.0) Mean Corpuscular Volume 59.2fL (81-100) Mean Corpuscular Hemoglobin 19.4pg (27.0-35.0) Mean Corpuscular Hemoglobin Concent 32.8% (32.0-37.0) Red Cell Distribution Width 18.1% (12.3-15.4) Platelet Count 196bil/L (150-400) Sodium Level 132mEq/L (134-144) Potassium Level 4.7mEq/L (3.5-5.2) Chloride Level 94mEq/L (97-108) Carbon Dioxide Level 24mmol/L (18-29) Blood Urea Nitrogen 31mg/dL (8-27) Creatinine 1.09mg/dL (0.57-1.00) Estimat Glomerular Filtration Rate 72mL/min (>59) Glucose Level 119mg/dL (60-99) Calcium Level 9.5mg/dL (8.5-10.1) Microbiology Results Specimen: [id number] Collected: 03/31/17 Status: COMP Req#: [id number] Received: 03/31/17 Source: URINE CC Sp Desc : PP Alona Dr: Stepan Jameson Ordered: URINE CULT Procedure Result Verified Site Microbiology MAME CULT URINE Final 04/03/17 Organism 1 ENTEROBACTER AEROGENES U COLONY COUNT/QUANTITY >100,000 CFU/ml 1. ENTEROBACTER AEROGENES M.I.C Interp --------- ------ * AMOXICILLIN/CLAVULATE R * CEFEPIME <=1 S * CEFTRIAXONE <=1 S * CEFUROXIME SODIUM R * CIPROFLOXACIN <=0.25 S * ERTAPENEM <=0.5 S * GENTAMICIN <=1 S * LEVOFLOXACIN <=0.12 S * NITROFURANTOIN 64 I * TETRACYCLINE <=1 S * TOBRAMYCIN <=1 S * TRIMETHOPRIM/SULFAMETHOXAZOLE <=20 S . Discharge Medications Discharge Medications Amlodipine (Amlodipine) 10 Mg Tablet 10 MG PO DAILY Prescribed by: RAFAL PHILLIPS MD Lisinopril (Lisinopril) 20 Mg Tablet 20 MG PO DAILY Prescribed by: RAFAL PHILLIPS MD Metoprolol Succinate ER (Metoprolol Succinate ER) 50 Mg Tab.er.24h 50 MG PO DAILY Prescribed by: RAFAL PHILLIPS MD Sulfamethoxazole/Trimeth 800-160 mg (Bactrim DS 800-160 mg) 1 Each Tablet 1 TABLET PO BID Take twice per day for 5 more days then stop Prescribed by: RAFAL PHILLIPS MD Additional med instructions There are 3 new medications amlodipine, lisinopril and metoprolol to help control your severe high blood pressure. Take these medicines regularly. Have your blood pressure checked with your doctor in the next week. He had an infection in the urine and kidneys. You should take the antibiotic Bactrim twice per day for 5 more days then stop. Followup Plan Follow-up plan Contact Dr. Ac at the oncology clinic on Friday to arrange a follow-up appointment. You may need an appointment for a liver biopsy if the results of your pleural fluid tests are negative. Dr. Ac's office will arrange this. Discharge Diet: No restrictions, Other (encourage water drinking and adequate calories) Discharge Activity: No restrictions Patient Instructions Contact your primary care doctor for an appointment within 1 week to check your blood pressure Follow-up Provider: Ej Ac MD Follow-up with PCP in: 1 week Time spent 35 minutes copies to: Ej Ac MD, Jeffrey W MD Apr 05, 2017 12:33
== END 2017-04-05 13:33 | disposition home health service (06) | DRG 872 ==
LOC: SED 13:16 → PCC 20:51
PROVIDERS: ADMIT Internal Medicine; ATTEND Internal Medicine
PROC: 0W9B3ZX Drainage of Left Pleural Cavity, Percutaneous Approach, Diagnostic (ICD-10-PCS; principal; 2017-04-02)
DX: A41.9 Sepsis, unspecified organism (principal); E22.2 Syndrome of inappropriate secretion of antidiuretic hormone; C22.9 Malignant neoplasm of liver, not specified as primary or secondary; C78.02 Secondary malignant neoplasm of left lung; C78.01 Secondary malignant neoplasm of right lung; N10 Acute pyelonephritis; Z68.1 Body mass index [BMI] 19.9 or less, adult; C79.51 Secondary malignant neoplasm of bone; F23 Brief psychotic disorder; R64 Cachexia; N12 Tubulo-interstitial nephritis, not specified as acute or chronic; I16.0 Hypertensive urgency; R63.0 Anorexia; F22 Delusional disorders; R73.9 Hyperglycemia, unspecified; E86.0 Dehydration; D50.9 Iron deficiency anemia, unspecified

== ENCOUNTER 2017-05-05 18:27 | Inpatient (IN) | payer MEDICARE, MEDICAID ==
[~2017-05-05] VITALS: Ht 154.9 cm; Wt 38.8 kg
[~2017-05-05 18:27] MED LIST: AMLO10TA3 PO; LISI-567 PO; METO-272 PO; SULF1TAB35 PO
[2017-05-05 18:45] VITALS: BP 119/75; PULSE 116; RESP 16; O2SAT 100
--- NOTE | 2017-05-05 19:01 | ED.REPORT ---
HPI-General Illness Date of Service May 05, 2017 ED Provider: Aiden Rutherford DO Pt is a 66 y/o female with a history of liver cancer with no chemotherapy who presents to the ED via EMS c/o generalized pain onset two days ago. She was diagnosed with metastatic liver cancer on March 31, 2017. Additional symptoms include increasing confusion, L shoulder pain, back pain, decreased fluid intake , and decreased appetite. Pt's daughter denies fever or cough. Nursing Notes Stated Complaint: GENERAL PAIN Chief Complaint: General Complaint Nursing Notes Reviewed: Yes Allergies: Coded Allergies: No Known Allergies (Unverified , 05/05/17) Scheduled Amlodipine (Amlodipine) 10 Mg Tablet 10 MG PO DAILY Lisinopril (Lisinopril) 20 Mg Tablet 20 MG PO DAILY Metoprolol Succinate ER (Metoprolol Succinate ER) 50 Mg Tab.er.24h 50 MG PO DAILY Sulfamethoxazole/Trimeth 800-160 mg (Bactrim DS 800-160 mg) 1 Each Tablet 1 TABLET PO BID Take twice per day for 5 more days then stop General Time Seen by MD: 19:01 Chief Complaint Other (Generalized pain) Hx Obtained From: Patient, Daughter, Other family... (Grandson) Arrived By: Ambulance Sudden in Onset?: No Onset Occurred: 2 days ago Quality: Painful Severity: Current: Moderate Severity: Maximum: Severe Context Related History: Reports Cancer Recent Healthcare: Recent doctor visit, Recent hospitalization Similar Sx Previous: No Past Medical History Past Medical History Lung cancer Past Surgical History Pt. denies Smoking History Never Smoker Social History Alcohol Use: Denies alcohol use Drug Use: Denies drug use Other Social History: Good social support Ambulatory Status Independent Review of Systems Generalized pain Decreased fluid intake Decreased appetite Full Review of Systems Constitutional: Denies: Fever Respiratory: Denies: Non-productive cough, Prod cough, clear Musculoskeletal: Reports: Back pain, Extremity pain (left shoulder ) Neurologic: Reports: Confusion (increasing) Complete sys rev & neg: except as marked. Physical Exam Vital Signs Vital Signs Date Time Temp Pulse Resp B/P Pulse Ox O2 Delivery O2 Flow Rate FiO2 05/05/17 18:45 36.4 116 16 119/75 100 Room Air Initial VS: Reviewed Neck: Supple, Full range of motion Extremities: Vascular intact, Neuro intact, No swelling, No tenderness Skin: Warm, Dry, No cyanosis Neurologic: Nonfocal General/Constitutional: Awake Alertness: Positive: Confused, Responds to verb stimuli Distress / Hydration: Positive: Dehydration moderate, Distress moderate Thin, almost cachectic Head / Eyes: Atraumatic, Normocephalic Sunken eyes ENT: Atraumatic, Airway patent Mouth: Positive: Mucous membranes dry Respiratory / Chest: Atraumatic, Breath sounds NL, Breath sounds = bilat, No respiratory distress Cardiovascular: Heart rate NL, Heart sounds NL Heart Rate / Rhythm: Positive: Tachycardia (rate in 120's ) Abdomen: Atraumatic, Soft Tenderness/Guarding/Rebound: Positive: Tender diffuse Interpretation & Diagnostics Lab Results Interpretation Result Diagram: 05/05/17191905/05/171919 Test 05/05/17 19:20 White Blood Count 32.0th/mm3 (3.8-10.1) Red Blood Count 6.03mil/mm3 (3.90-5.20) Hemoglobin 11.8g/dL (12.0-15.6) Hematocrit 36.0% (35.0-46.0) Mean Corpuscular Volume 59.7fL (81-100) Mean Corpuscular Hemoglobin 19.6pg (27.0-35.0) Mean Corpuscular Hemoglobin Concent 32.8% (32.0-37.0) Red Cell Distribution Width 20.7% (12.3-15.4) Platelet Count 52bil/L (150-400) Neutrophils (%) (Auto) 74% (40-74) Lymphocytes (%) (Auto) 3% (14-46) Monocytes (%) (Auto) 5% (4-12) Eosinophils (%) (Auto) 7% (0-5) Basophils (%) (Auto) 0% (0-3) Band Neutrophils % 11% (1-5) Nucleated Red Blood Cells 2/100 WBC (0-24) Hematology Comments Prothrombin Time 14.3sec (8.1-12.5) Prothromb Time International Ratio 1.33ratio Sodium Level 133mEq/L (134-144) Potassium Level 4.6mEq/L (3.5-5.2) Chloride Level 94mEq/L (97-108) Carbon Dioxide Level 18mmol/L (18-29) Blood Urea Nitrogen 77mg/dL (8-27) Creatinine 1.03mg/dL (0.57-1.00) Estimat Glomerular Filtration Rate 77mL/min (>59) Glucose Level 113mg/dL (60-99) Lactic Acid Level 2.9mmol/L (0.4-2.0) Calcium Level 10.2mg/dL (8.5-10.1) Total Bilirubin 0.9mg/dL (0.0-1.2) Aspartate Amino Transf (AST/SGOT) 41U/L (0-50) Alanine Aminotransferase (ALT/SGPT) 27U/L (0-32) Alkaline Phosphatase 923U/L (25-165) Troponin T 0.064ug/L (0.0-0.011) Total Protein 6.4g/dL (6.4-8.4) Albumin 2.8g/dL (3.4-5.0) Procalcitonin 0.61ng/mL (0.00-0.08) X-Ray Chest Interpretation Chest Xray Interpretation: IMPRESSION: 1. Diffuse interstitial opacities which may be associated with pulmonary edema. 2. Probable small left pleural effusion and consolidation or aspiration at the left lung base. 3. Multifocal sclerotic bony lesions and mixed sclerotic/lytic lesion at the left glenoid suspicious for diffuse osseous metastasis. Dictated by: Debi Galvan M.D. on 05/05/2017 at 20:08 Approved by: Debi Galvan M.D. on 05/05/2017 at 20:10 View: AP & lat Interpretation / Wet Read by: Interpret - Radiologist CT Head Interpretation IMPRESSION: 1. Multiple punctate hyperdense foci throughout the cerebrum without associated edema. This may represent multifocal punctate intracranial hemorrhage. Alternatively, intracranial metastasis could have this appearance. Differential considerations would include metastatic melanoma and hemorrhagic metastases. MRI of the brain with and without contrast is recommended to further characterize this finding. 2. 8 mm diameter right occipital hypodense focus with hyperdense rim which may represent intracranial metastasis and possible associated hemorrhage. 3. Probable bilateral small subgaleal hematomas suggesting recent fall history. Please correlate with clinical history of possible. If there is a history of recent trauma, the punctate hyperdense foci may be associated with diffuse axonal injury. These findings were discussed with Dr. Rutherford at 7:56 PM on 05/02/17. Dictated by: Debi Galvan M.D. on 05/05/2017 at 19:49 Approved by: Debi Galvan M.D. on 05/05/2017 at 20:00 Study: Head CT no contrast Interpretation / Wet Read by: Interpret - Radiologist Re-Eval/Medical Decision Med Decision/Clinical Course I reviewed the imaging, labs with family member. Her daughter is decided that her mother would not wish to have any further treatment. Evidently her mother' s mental illness precludes her from truly understanding her disease process. Her mother is in denial that she has cancer. Her daughter would like her mother to have piece. She like her pain to be treated and have no further diagnostics. She has significant metastatic cancer with markedly metabolic abnormalities. She will be admitted to the hospital for pain control. I suspect hospice consultation as well. Source of Hx: Old records Time of Eval: 20:35 Re-Evaluation/Progress Note: Pt rechecked. Pt is in denial that she has cancer due to her altered mental status. She denies chemotherapy, and family wants comfort measures only. Discussed plan for admission with hospice care. Pt's family understands and agrees with plan. All questions addressed. Consultation #1: Referral / Consult Name: Debi Galvan MD Call Returned at: 19:52 Strategic Partnership Representative: Agrees with eval, Agrees with plan Note: Discussed pt's case with radiologist, Dr. Galvan. She states to take a MRI with and without contrast. Consultation #2: Referral / Consult Name: Shlomo Aguila MD Consulted With: Hospitalist Call Returned at: 21:35 Strategic Partnership Representative: Will see patient, Agrees with plan, Accepts admit Note: Discussed pt's case with hospitalist, Dr. Aguila. He accepts admission. Counseled Regarding: Diagnosis, Lab results, Need for admission Discharge & Departure Primary Impression: Metastatic cancer Additional Impressions: Altered mental status Altered mental status type: unspecified Qualified Code: R41.82 - Altered mental status, unspecified Dehydration Leukocytosis Leukocytosis type: unspecified Qualified Code: D72.829 - Elevated white blood cell count, unspecified Comfort measures only status Disposition: ADMITTED TO HOSPITAL Discharge Condition All VS Reviewed: Yes Condition: Stable Referrals: NOPCP (PCP) Scribe Attestation Portions of this note were transcribed by Dolly Anderson. IDr. Rutherford, personally performed the history, physical exam and medical decision-making; I reviewed and confirmed the accuracy of the information in the transcribed note. Aiden Rutherford DO May 05, 2017 19:01 Dolly Anderson May 05, 2017 19:10
[2017-05-05] MEDS ORDERED: 0.9% Sodium Chloride 1,000 ML IV ONE ×2 (19:10→20:05)
--- NOTE | 2017-05-05 20:01 | DRSVH ---
PROCEDURE: CT BRAIN WITHOUT CONTRAST ([id number]) INDICATIONS: altered mental status TECHNIQUE: Noncontrast 4.5 mm thick angled axial sections acquired from the foramen magnum to the vertex, with c oronal reformats. COMPARISON: [facility], CT, CT ABD PELVIS W CON, 03/31/2017, 17:42. FINDINGS: Image quality: Excellent. CSF spaces: Basal cisterns are patent. No extra-axial fluid collections. The ventricles are symmet adry in size and shape. Brain: Multiple punctate hyperdense foci are present at the tierney-white junction in what appears to b e a random distribution throughout the cerebrum. There is no associated edema with these lesions. A h ypodense 8mm diameter lesion is present within the right occipital lobe. The parenchyma surrounding t his lesion appears hyperdense. No midline shift. There are periventricular and deep white matter mold swabber trisha small vessel ischemic changes. There is an old lacunar infarct in the right basal ganglia. There is intracranial internal carotid artery atherosclerosis. Skull and face: A small subgaleal hematoma overlies the left parietal bone. A small subgaleal hemato ma overlies the right posterior parietal bone. Calvarium and visualized facial bones appear intact, w ithout suspicious lesions. Sinuses: Visualized sinuses and mastoids are clear. IMPRESSION: 1. Multiple punctate hyperdense foci throughout the cerebrum without associated edema. This may repre sent multifocal punctate intracranial hemorrhage. Alternatively, intracranial metastasis could have t his appearance. Differential considerations would include metastatic melanoma and hemorrhagic metasta ses. MRI of the brain with and without contrast is recommended to further characterize this finding. 2. 8 mm diameter right occipital hypodense focus with hyperdense rim which may represent intracranial metastasis and possible associated hemorrhage. 3. Probable bilateral small subgaleal hematomas suggesting recent fall history. Please correlate with clinical history of possible. If there is a history of recent trauma, the punctate hyperdense foci m ay be associated with diffuse axonal injury. These findings were discussed with Dr. Rutherford at 7:56 PM on 05/02/17. Dictated by: Debi Galvan M.D. on 05/05/2017 at 19:49 Approved by: Debi Galvan M.D. on 05/05/2017 at 20:00
[2017-05-05 20:02] LABS: BASOPHILS % (AUTO) 0 % (0-3); EOSINOPHILS % (AUTO) 7 % (0-5); MONOCYTES % (AUTO) 5 % (4-12); Mean Corpuscular Hemoglobin 19.6 pg (27.0-35.0); Mean Corpuscular Volume 59.7 fL (81-100); NEUTROPHILS % (AUTO) 74 % (40-74); Platelet Count 52 bil/L (150-400)
[2017-05-05 20:09] LABS: INR 1.33 ratio; TROPONIN T 0.064 ug/L (0.0-0.011)
--- NOTE | 2017-05-05 20:12 | DRSVH ---
PROCEDURE: X-RAY CHEST, TWO VIEWS ([id number]) INDICATIONS: altered mental status, tachycardia and tachypnea TECHNIQUE: 2 views of the chest were acquired. COMPARISON: [facility], CR, XR CHEST 1VW, 04/02/2017, 16:15. FINDINGS: Surgical changes and devices: None. Lungs and pleura: There is diffuse interstitial prominence similar in extent to the study dated . There is a small left pleural effusion and probable consolidation at the left lung base. No pneum othorax. Mediastinum: Mediastinal contours are normal. Heart size is enlarged. Bones and chest wall: The left glenoid has a mixed sclerotic/lytic appearance. There are multiple scl erotic foci throughout the thoracic spine. IMPRESSION: 1. Diffuse interstitial opacities which may be associated with pulmonary edema. 2. Probable small left pleural effusion and consolidation or aspiration at the left lung base. 3. Multifocal sclerotic bony lesions and mixed sclerotic/lytic lesion at the left glenoid suspicious for diffuse osseous metastasis. Dictated by: Debi Galvan M.D. on 05/05/2017 at 20:08 Approved by: Debi Galvan M.D. on 05/05/2017 at 20:10
[2017-05-05] MEDS ORDERED: Piperacillin-Tazo 3.375 Gm Inj 3.375 GM in Dextrose 5% Minibag Plus 50 ML IV ONE (20:35)
[2017-05-05] MEDS: HYDROmorphone 0.5 mg/0.5 mL iSecure Syringe IVPUSH PRN ×2 (21:09→23:24)
[2017-05-05] MEDS ORDERED: Haloperidol 5 mg/mL Inj IVPUSH PRN (21:40)
[2017-05-05 22:03] VITALS: BP 154/92; PULSE 108; RESP 16; O2SAT 95
[2017-05-05] MEDS ORDERED: Dexamethasone Inj 10 MG in 0.9% Sodium Chloride-Pha MIX 50 ML IV ONE (22:20)
[2017-05-05 22:21] VITALS: BP 166/104; PULSE 111; RESP 16; O2SAT 92
--- NOTE | 2017-05-06 00:29 | NUR ---
Pt arrived to [facility] rm 1007 at 2345 from ED. Pt required 2EA from gurney to bed. Pt is here for comfort care/hospice due to mets cancer. Pt family at bedside, has very little knowledge of Pt hx due to Pt only living with dtr for past month. Pt speaks niuean and can indicate pain only. Pt is having delerium per dtr due to cancer in her brain. Unable to orient to room/call light, staff to anticipate needs, q2hr repositioning, and hourly rounds. Diet is as tolerated but Pt has not been eating for a couple days per family. DNR/DNI. IV to right FA is asymptomatic and SL. IV pain meds given and Pt comfortable. Call light in reach, bed in low position. Care continues.
[2017-05-06 01:11] VITALS: BP 111/78; PULSE 90; RESP 14; O2SAT 94
--- NOTE | 2017-05-06 01:44 | PCM.HPMED ---
Subjective Date of Service May 05, 2017 Primary Provider: Admitting Physician: Primary Care Physician: Whit Lerner Attending Physician: Admit Status: From the Emergency Department, Full Admit, Non-Telemetry Chief Complaint: Cancer pain and confusion History of Present Illness: Lindsay Monterroso is a 66 yo [place]er female with recent diagnosed metastatic liver/ lung cancer, Pyelonephritis who presents to [facility] emergency department via EMS c/o generalized pain and confusion History gathered from daughter as patient speaks little Frisian. Daughter reported patient having significant pain around her back and left shoulder area. Associated symptoms includes decreased appetite, patient has ate a small breakfast only for the last 2 days. She has been confused as well, with visual hallucinations. Case discussed with Dr Rutherford. Daughter wished on Comfort care at this time Review of Systems: unable to be obtained due to language barrier and confusion Allergies Coded Allergies: No Known Allergies (Unverified , 05/05/17) Home Medications From recent Discharge summary Amlodipine (Amlodipine) 10 Mg Tablet 10 MG PO DAILY Prescribed by: RAFAL PHILLIPS MD Lisinopril (Lisinopril) 20 Mg Tablet 20 MG PO DAILY Prescribed by: RAFAL PHILLIPS MD Metoprolol Succinate ER (Metoprolol Succinate ER) 50 Mg Tab.er.24h 50 MG PO DAILY Prescribed by: RAFAL PHILLIPS MD [facility] Recent diagnosed metastatic liver or lung cancer Hypertension Enterobacter beta-lactam resistant Pyelonephritis Chronic anemia Multiple metabolic derangement with hyponatremia . Surgical History None reported Family History Sister had unknown cancer Unsure about parents Social History Hx Alcohol Use: No Hx Substance Use: No Hx Tobacco Use: No (denies) Smoking Status: Never Smoker Living Arrangement: with Family (recently moved to stay with her daughter) Exam Vital Signs Vital Sign - Last Date Time Temp Pulse Resp B/P Pulse Ox O2 Delivery O2 Flow Rate FiO2 05/05/17 18:45 36.4 116 16 119/75 100 Room Air Exam General: Awake but confused Eyes: PERRLA, Scleral Anicteric Mouth: Mouth Normal, Mucous Membranes dry Neck: Supple, no Thyromegaly, trachea central. Chest & Lungs: Clear to auscultation & percussion, No adventitious breath sounds, no crackles, no wheeze Cardiovascular: Normal S1, Normal S2, No Murmurs/Rubs/Gallops, Regular Rate/ Rhythm, (No JVD, no peripheral edema) Pulses: Radial (present and equal), Dorsalis Pedi (present and equal) Abdomen: Soft, Non-tender, Non-distended, Normoactive bowel tones. Musculoskeletal: Unremarkable. Normal range of motion, no swollen or erythematous joints Extremities: No edema, no cyanosis, no clubbing. Skin: No rashes. Warm and dry, no erythematous areas Neurological: Grossly neurologically intact, has generalized weakness, Normal Speech, Sensation Intact Lymphatic: Lymph nodes Cervical and Axillary not palpable. Lab and Diagnostics Labs Laboratory Tests Test 05/05/17 19:20 White Blood Count 32.0th/mm3 (3.8-10.1) Red Blood Count 6.03mil/mm3 (3.90-5.20) Hemoglobin 11.8g/dL (12.0-15.6) Hematocrit 36.0% (35.0-46.0) Mean Corpuscular Volume 59.7fL (81-100) Mean Corpuscular Hemoglobin 19.6pg (27.0-35.0) Mean Corpuscular Hemoglobin Concent 32.8% (32.0-37.0) Red Cell Distribution Width 20.7% (12.3-15.4) Platelet Count 52bil/L (150-400) Neutrophils (%) (Auto) 74% (40-74) Lymphocytes (%) (Auto) 3% (14-46) Monocytes (%) (Auto) 5% (4-12) Eosinophils (%) (Auto) 7% (0-5) Basophils (%) (Auto) 0% (0-3) Band Neutrophils % 11% (1-5) Nucleated Red Blood Cells 2/100 WBC (0-24) Hematology Comments Prothrombin Time 14.3sec (8.1-12.5) Prothromb Time International Ratio 1.33ratio Sodium Level 133mEq/L (134-144) Potassium Level 4.6mEq/L (3.5-5.2) Chloride Level 94mEq/L (97-108) Carbon Dioxide Level 18mmol/L (18-29) Blood Urea Nitrogen 77mg/dL (8-27) Creatinine 1.03mg/dL (0.57-1.00) Estimat Glomerular Filtration Rate 77mL/min (>59) Glucose Level 113mg/dL (60-99) Lactic Acid Level 2.9mmol/L (0.4-2.0) Calcium Level 10.2mg/dL (8.5-10.1) Total Bilirubin 0.9mg/dL (0.0-1.2) Aspartate Amino Transf (AST/SGOT) 41U/L (0-50) Alanine Aminotransferase (ALT/SGPT) 27U/L (0-32) Alkaline Phosphatase 923U/L (25-165) Troponin T 0.064ug/L (0.0-0.011) Total Protein 6.4g/dL (6.4-8.4) Albumin 2.8g/dL (3.4-5.0) Procalcitonin 0.61ng/mL (0.00-0.08) Microbiology 05/05/17 Blood Culture, Received Pending Result Diagram: 05/05/17191905/05/171919 X-Rays, CTs and MRIs CT BRAIN WITHOUT CONTRAST 05/05 IMPRESSION: 1. Multiple punctate hyperdense foci throughout the cerebrum without associated edema. This may represent multifocal punctate intracranial hemorrhage. Alternatively, intracranial metastasis could have this appearance. Differential considerations would include metastatic melanoma and hemorrhagic metastases. MRI of the brain with and without contrast is recommended to further characterize this finding. 2. 8 mm diameter right occipital hypodense focus with hyperdense rim which may represent intracranial metastasis and possible associated hemorrhage. 3. Probable bilateral small subgaleal hematomas suggesting recent fall history. Please correlate with clinical history of possible. If there is a history of recent trauma, the punctate hyperdense foci may be associated with diffuse axonal injury. These findings were discussed with Dr. Rutherford at 7:56 PM on 05/02/17. Dictated by: Debi Galvan M.D. on 05/05/2017 at 19:49 Approved by: Debi Galvan M.D. on 05/05/2017 at 20:00 X-RAY CHEST, TWO VIEWS 05/05 IMPRESSION: 1. Diffuse interstitial opacities which may be associated with pulmonary edema. 2. Probable small left pleural effusion and consolidation or aspiration at the left lung base. 3. Multifocal sclerotic bony lesions and mixed sclerotic/lytic lesion at the left glenoid suspicious for diffuse osseous metastasis. Dictated by: Debi Galvan M.D. on 05/05/2017 at 20:08 Approved by: Debi Galvan M.D. on 05/05/2017 at 20:10 Assessment & Plan Lindsay Monterroso is a 66 yo [place] female with recent diagnosed metastatic liver/ lung cancer, Pyelonephritis who presents to [facility] emergency department via EMS c/o generalized pain and confusion 1. Acute Encephalopathy due to multifocal punctate intracranial hemorrhage with brain metastasis. Present on admission Discussed goals of care with daughter. Dexamethasone dose given. These metastasis to the brain was no noted during her recent hospitalization but could also explain some of her mentioned psychiatric problems and paranoia - COMFORT CARE protocol initiated - Palliative care team consultation in the morning to watch patient in hospital - Morphine IV PRN, consider drip as needed 2 Probable Metastatic Carcinoma unknown primary origin; ongoing. Presents with weight loss, anorexia over the last month or so. CT demonstrated diffuse metastatic disease - liver, lung, spleen. Diagnostic thoracentesis performed on 04/02. Transudative chemistries. Thoracentesis chemistries were transitive with LDH 71, total protein 2.9, glucose 127. Cell counts 425 RBC with 179 WBC 38% polymorphonuclear. - Dr Ac was consulted unfortunately the cancer is too advanced and decline in functional status - Comfort care as mentioned above 3 Hypertension with Hypertensive urgency. During last hospital say she was managed with IV labetalol during acute abdominal distress. Now with increased metoprolol, lisinopril, amlodipine and her hydrochlorothiazide - all antihypertensive medications will be stopped at this time 4 Recent Enterobacter beta-lactam resistant Pyelonephritis. Resolved Treatment with Zosyn switch to Bactrim 10 days completed. Leukocytosis is concerning but again we are focusing on comfort as the main goal at this time 5 Hyponatremia, hypochloremia Likely related to malignancy. No further workup will be done at this time - Acetaminophen as needed for mild pain/fever/headache - Bowel regimen as needed - Antiemetic as needed Patient admitted under inpatient status with expected length of stay > 2 midnights for severity of present symptoms, complexities of treatment plan and risk for adverse event . Shlomo Aguila MD May 05, 2017 21:46
[2017-05-06] MEDS: HYDROmorphone 0.5 mg/0.5 mL iSecure Syringe IVPUSH PRN ×2 (02:24→04:24)
--- NOTE | 2017-05-06 04:28 | PCM.ADCARE ---
Advance Care Planning Note Purpose of Encounter: Active Diagnoses: Metastatic Cancer with unknown primary Hypertension These active diagnoses are sufficient risk that focused discussion on advance car planning is indicated in order to allow the patient to thoughtfully consider personal goals of care and if situations arise that prevent the ability to personally give input to insure appropriate representation of their personal desires through documentation or informed surrogate decision makers Parties in Attendance: Patient, Daughter and grandson, ri Decisional Capacity: Poor Goals of Care Determinations: I reviewed the poor prognosis with patient's daughter She had already discussed goals of care with her brother and they both wish to proceed with COMFORT CARE. They don't want patient to have any suffering and no heroic treatments at this time CODE STATUS: DNR/DNI Time Spent Adv.Care Planning: Time spent with advanced care planning: Greater than 16 minutes Shlomo Aguila MD May 06, 2017 04:28
[2017-05-06 06:17] VITALS: BP 121/71; PULSE 98; RESP 16; O2SAT 95
[2017-05-06 09:23] VITALS: BP 110/75; PULSE 130; RESP 24; O2SAT 91
[2017-05-06] MEDS ORDERED: LORazepam Oral Conc 2 mg/mL 30 mL Solution PO PRN (09:35)
[2017-05-06] MEDS ORDERED: Atropine 1% 5 mL Ophthalmic Solution PO PRN (09:35)
[2017-05-06] MEDS ORDERED: Glycopyrrolate 0.2 MG/ML 1mL Inj IVPUSH PRN (09:35)
[2017-05-06] MEDS ORDERED: Artificial Tears 15 mL Ophthalmic Solution AFFECT_EYE PRN (09:35)
[2017-05-06] MEDS ORDERED: Morphine 20 mg/mL Oral Syringe SL/PO PRN (09:35)
--- NOTE | 2017-05-06 10:37 | NUR ---
Palliative Care Palliative Care received order from Dr Aguila 05/05/17 (late) to assist with goals of care. Patient admitted 05/05/17. Jade Ashraf (daughter) [phone] Palliative Care to follow. Estela Bowens
--- NOTE | 2017-05-06 10:39 | NUR ---
Palliative care note D/A: Palliative care referral received on pt. Dr. Thompson to see today. Pt admitted for what appears to be comfort care at this time. Dr. Thompson has left message for pt dtr and will discuss further plan of care with her when she arrives. Dr. Thompson has seen pt this am and thinks that it is possible that the pt may be able to be discharged once she is stabilized. Pt and dtr reside in [facility]. He will be talking to dtr about the possibility of hospice services. The following is gleaned from hospital and clinic chart notes. Pt has usually resided with son in [place]. Moved to dtr's home within the last month. May have been visiting in [facility] in March of 2017. Dtr Ildefonso and grandson Sam have expressed that pt has had a mental health history and has evidenced paranoia and paranoid thoughts. She may also have brain involvement now with her cancer. She was seen by Dr. Ac during admission in March of 2017. He was awaiting cytology reports and there was an outpt appt arranged with him for 04/15/17 but pt was unable to agree to go. She has been expressing fears that people are attempting to poison her and as a result, has not been able to take her meds for the most part, since dc and has very little po intake. Pt was seen for a new pt appt by Dr. Juan Leavitt [facility] and [facility] is following. Pt dtr has been tearful and overwhelmed with the care of her mo and remains interested in possible facility placement. Pt is noted to have Medicare and Medicaid at this time. Dr. Thompson is aware of above. Phone call to damián Michelle to explain as well. P: Palliative care to follow. Melissa SIMENTAL, [facility]
--- NOTE | 2017-05-06 14:41 | PCM.PALLBR ---
Palliative Brief Note Date of Service May 06, 2017 . Received consultation request to assist in comfort care management for this patient. Reviewed her records in the EMR in detail prior to visiting. Patient was minimally responsive and speaks no Citizen Of [place] and so significant interaction not possible. I left my cell with her nurse who was to call me when family members arrived. Reviewed her comfort care orders and made changes and additions as needed to optimize her comfort. Returned to recheck at 1500- resting comfortably. No family members present all day. Once we have a chance to talk with her family members, plan on hospice information visit. Full note follow once I have had a chance to communicate with the patient's family. Total time spent today with this patient's care- 35 minutes- greater than 50% spent in direct contact and coordination of care with other caregivers. Jacky Thompson MD May 06, 2017 14:41
[2017-05-06 15:31] VITALS: PULSE 127; O2SAT 93
--- NOTE | 2017-05-06 15:56 | NUR ---
Social Work: Initial Assessment/Multidisciplinary Rounds D: EMR reviewed. Please see Initial Assessment linked to this note for more information. Pt is a 66 year old female admitted [place] with a readmit risk score of 7 for widespread cancer, brain hemorrhage per H&P. Pt's insurance is Medicare and [facility] Supp. PCP is [facility]. Pt discussed in multidisciplinary rounds, pt is being followed by Palliative Care. Concerns expressed regarding daughter's ability to care for pt at home, pt may require higher level of care than daughter is able to provide. Pt was asleep when GEM TECHNICIAN attempted to meet with pt and did not awake. SW placed telephone call to pt's daughter Yordy Connor ([phone]) regarding discharge planning, SW role explained. Pt resides at home with her daughter and her daughters five children (21, 19, 10, 8, and 2. Pt is completely dependent with ADLs. Pt is bedbound at baseline. Pt does not drive. Pt has no SNF history. Pt is currently open with [facility] and GEM TECHNICIAN. T/C to Margareth who confirms this. Margareth is agreeable to resumption of service if indicated but questions if pt will require a higher level of care. After last admission, pt was referred to [facility]. Pt's daughter provided this worker with the phone number for [facility] Lenny [phone] who reports that pt is in the beginning stages of the HCS process. If pt returns to her daughters home then [facility] would follow up at home. Similarly if pt d/c to SNF then [facility] would follow up at SNF. Lenny asked to be kept updated regarding d/c plan. No clinical information requested at this time. Pt has no caregivers at home at this time and no caregiving hours assigned at this time. Per Palliative GEM TECHNICIAN, pt has recently begun declining medications and refusing to attend outpt appointments. Palliative GEM TECHNICIAN also informed this worker of pt's paranoia. Unclear if this is a cultural barrier between the healthcare system and pt's health understanding or an underlying psychological condition. Pt's daughter confirms this information. Pt's daughter reports that her mother was prescribed medication after her last hospitalization and took the medication for 3 days. Daughter reports that the medication did not make pt feel better and pt felt that her medications were making her more ill and so she stopped taking them. Per daughter, pt does not have good insight into her current medical condition and does not believe that she is terminally ill. Pt believes that medications are making her more sick than the cancer. Pt's daughter also reports decreased PO intake, pt only eating approximately one meal per day for the last three days. Pt's daughter says that pt is in pain and so she doesn't want to eat. When GEM TECHNICIAN discussed goals and discharge planning with pt's daughter, pt's daughter confirmed that she is not able to accept pt back home. Pt's daughter explicitly expressed the goal of comfort for pt. Pt's daughter reports that her mother is "crammed" into a small, shared bedroom at this time and that this is not the quality of life that she would want for her mother. Pt's daughter was unsure of hospice services at this time. Pt's daughter stated she would prefer a SNF for her mother to receive the care needed to be comfortable. Daughter states that a facility in [place] or [place] would be preferable but she "just wants her to be comfortable no matter what." Pt's daughter appears to have good insight into the severity of her mothers illness and is comfortable making decisions on her mother's behalf. Pt's daughter is planning on coming to the hospital between 4 and 5, RN updated and will update Palliative Care. Palliative Care is planning on meeting with pt and family regarding goals of care and pain management. A: Pt who is not independent at baseline and does not have the capacity for self-care. P: Pt's daughter reports that she is not able to care for pt at home any longer. Daughter expressed interest in comfort for pt above all else and requested that pt receive care in a facility. SW requested order from to explore this option. Palliative Care to meet with pt and pt's daughter today. SW will continue to follow. KISHAN Dickey Addendum: 05/06/17 at 1623 by TUNDE HARKINS Amended: Links added.
[2017-05-06] MEDS ORDERED: Morphine 100 mg/100 mL NS 100 MG in IV Premix 1 EACH IV SCH (17:10)
--- NOTE | 2017-05-06 17:11 | NUR ---
IV Morphine Pt settles after 2mg IV Morphine given, but becoming less effective as shift goes on. Pt grimacing noted, calling out and repeating pain in her chilkat tongue per family member at BS. Dr Thompson notified, made aware of pt choking previously with moistening her mouth, new orders for IV Morphine gtt to be started for comfort care measures. Ok to call Dr Thompson during day shift with any further needs at [phone]. Care ongoing.
[2017-05-06] MEDS ORDERED: 0.9% Sodium Chloride 100 ML ONE ×2 (17:16→17:19)
[2017-05-06 18:01] VITALS: BP 121/79; PULSE 128; RESP 24; O2SAT 88
--- NOTE | 2017-05-06 20:23 | PCM.PNMED ---
Subjective Date of Service May 06, 2017 Subjective Patient is seen and examined, it is not clear whether she can actually see people around her, her right pupil appears to be blown. She appears to be seeing "I do not want to talk" in Ukrainian per son-in-law who is present in the room. Patient does not speaking , but the son in law speaking good [place] Citizen. Son-in-law tells me that patient was here on a prior admit in March when she initially got diagnosed malignancy, however he is unclear if she has had the news in [place] but did not want to accept it and hence did not share it with the rest of the family. Per son-in-law, she was resistant to follow-up that was arranged by [facility]. Records indicate that she was supposed to follow-up with . Exam Vital Signs Vital Sign - Last Date Time Temp Pulse Resp B/P Pulse Ox O2 Delivery O2 Flow Rate FiO2 05/06/17 06:17 37.1 98 16 121/71 95 Room Air Intake and Output 05/05/17 05/05/17 05/06/17 Cumulative From/Thru 15:00 23:00 07:00 05/05/17 18:45 - 05/06/17 06:17 Intake Total 2000 ml 0 ml 2000 ml Output Total 342 ml 342 ml Balance 2000 ml -342 ml 1658 ml Intake Oral 0 ml 0 ml IV Total 2000 ml 2000 ml Output Urine Total 342 ml 342 ml # Bowel Movements 0 0 Exam General: Patient is laying in bed, moaning at times, thin/ cachectic HEENT: Fixed, dilated left pupil, right pupil appears to have a cataract Neck: Negative for JVD, trachea central Heart: Tachycardic no S3-S4 murmurs Lungs: Normal work of breathing Abdomen: Flat, nondistended, nontender, hyperactive bowel sounds Skin: Warm and dry Extremities: Negative for edema Neurological: Unclearif Patient can actually see people around her, non- responsive to verbal Psychiatric: Negative for agitation IVs and Medications Medications Reviewed: Medications were reviewed in detail Lab and Diagnostics Result Diagram: 05/05/17191905/05/171919 X-Rays, CTs and MRIs CT BRAIN WITHOUT CONTRAST 05/05 IMPRESSION: 1. Multiple punctate hyperdense foci throughout the cerebrum without associated edema. This may represent multifocal punctate intracranial hemorrhage. Alternatively, intracranial metastasis could have this appearance. Differential considerations would include metastatic melanoma and hemorrhagic metastases. MRI of the brain with and without contrast is recommended to further characterize this finding. 2. 8 mm diameter right occipital hypodense focus with hyperdense rim which may represent intracranial metastasis and possible associated hemorrhage. 3. Probable bilateral small subgaleal hematomas suggesting recent fall history. Please correlate with clinical history of possible. If there is a history of recent trauma, the punctate hyperdense foci may be associated with diffuse axonal injury. These findings were discussed with Dr. Rutherford at 7:56 PM on 05/02/17. Dictated by: Debi Galvan M.D. on 05/05/2017 at 19:49 Approved by: Debi Galvan M.D. on 05/05/2017 at 20:00 X-RAY CHEST, TWO VIEWS 05/05 IMPRESSION: 1. Diffuse interstitial opacities which may be associated with pulmonary edema. 2. Probable small left pleural effusion and consolidation or aspiration at the left lung base. 3. Multifocal sclerotic bony lesions and mixed sclerotic/lytic lesion at the left glenoid suspicious for diffuse osseous metastasis. Dictated by: Debi Galvan M.D. on 05/05/2017 at 20:08 Approved by: Debi Galvan M.D. on 05/05/2017 at 20:10 Assessment & Plan Lindsay Monterroso is a 66 yo [place] female with recent diagnosed metastatic liver/ lung cancer, Pyelonephritis who presents to [facility] emergency department via EMS c/o generalized pain and confusion Acute Encephalopathy due to multifocal punctate intracranial hemorrhage with brain metastasis. Present on admission -- Per Dr. Lloyd's notes ":"Discussed goals of care with daughter. Dexamethasone dose given. These metastasis to the brain was no noted during her recent hospitalization but could also explain some of her mentioned psychiatric problems and paranoia" - COMFORT CARE protocol initiated - Dr. Thompson from Palliative care team has seen the patient per his notes, however he was unable to have a family meeting. This will probably happen on - Patient is currently on 1mh/hr morphine drip, increased to 1.5 mg /hr. Probable Metastatic Carcinoma unknown primary origin; ongoing. Presents with weight loss, anorexia over the last month or so. CT demonstrated diffuse metastatic disease - liver, lung, spleen. Diagnostic thoracentesis performed on 04/02. Transudative chemistries. Thoracentesis chemistries were transitive with LDH 71, total protein 2.9, glucose 127. Cell counts 425 RBC with 179 WBC 38% polymorphonuclear. - Dr Ac was consulted unfortunately the cancer is too advanced and decline in functional status - Comfort care as mentioned above Hypertension with Hypertensive urgency. During last hospital say she was managed with IV labetalol during acute abdominal distress. Now with increased metoprolol, lisinopril, amlodipine and her hydrochlorothiazide - all antihypertensive medications will be stopped at this time Recent Enterobacter beta-lactam resistant Pyelonephritis. Resolved Treatment with Zosyn switch to Bactrim 10 days completed. Leukocytosis is concerning but again we are focusing on comfort as the main goal at this time Hyponatremia, hypochloremia Likely related to malignancy. No further workup will be done at this time - Acetaminophen as needed for mild pain/fever/headache - Bowel regimen as needed - Antiemetic as needed High risk medications: Morphine drip, Dilaudid PRN IV Patient admitted under inpatient status with expected length of stay > 2 midnights for severity of present symptoms, complexities of treatment plan and risk for adverse event. Family/Palliative care meeting has not taken place on , SNF placement/Social service order is entered as daughter would like for to be placed at a SNF. . Pain Evaluation: Adequate Pain Control Resuscitation Status: DNR/DNI:Do Not Resuscitate/Intubate Time spent 25 min Kiya Grande DO May 06, 2017 07:58
[2017-05-06 22:28] VITALS: RESP 18
[2017-05-07 04:50] VITALS: RESP 18
--- NOTE | 2017-05-07 07:16 | NUR ---
05/06/17 1800 Conversation with Daughter Per daughter, pt and family are Buddhism and pt daughter states "I am not ready for this, I am not ready for her to go." Daughter had expressed she wishes the body to not be moved or touched after pt passing due to holiness and cultural beliefs, she states "this gives the body time to relax and the spirit to leave." coal pipeline operator made aware. Order for [place] put in as pt daughter requested to speak with Spiritual Counselor. Care ongoing. Addendum: 05/07/17 at 0713 by JOLENE KAPADIA RN
--- NOTE | 2017-05-07 09:06 | NUR ---
NURSING HOME TRANSFER : Gave access and faxed facesheet to [facility], Minerva Collier and [facility]. [facility] is the preference per INSURANCE CUSTOMER SERVICE SPECIALIST
--- NOTE | 2017-05-07 12:10 | NUR ---
Social Work- Continued D/C Planning Data: EMR reviewed. Pt is on day 2 of hospitalization. Pt discussed in multidisciplinary rounds, Palliative Care met with pt this morning and informed RISK ASSESSMENT CONSULTANT that pt is not appropriate to d/c to SNF at this time under comfort care. Morphine drip has been started. Prior to learning this information, [facility] faxed referrals to SNF preferences per plan yesterday. SW received t/c from Bita at [facility] stating that they would be able to accept pt under comfort care if needed. SW will continue to follow for d/c planning as appropriate. Assessment: Pt who is not capable of self-care, end of life appropriate. Plan: Per palliative care, pt is not appropriate to d/c to SNF at this time under comfort care. If needed, [facility] is able to accept pt. SW will continue to follow for d/c planning as appropriate. KISHAN Dickey
--- NOTE | 2017-05-07 13:38 | PCM.CONPAL ---
Date of Service May 07, 2017 Date of Hospital Admission: May 05, 2017 at 21:55 Date of Palliative Consult: May 07, 2017 Requesting Provider: Shlomo Aguila MD Reason Palliative Care Consult: Hospice Referral & Discussion, Other (comfort care) Hospital Unit @time of consult: Orthopedic/Surgical Care Palliative Care Recommendation 66-year-old Liberian female with widely metastatic cancer of unknown primary, including multiple apparent intracerebral metastases on brain CT. Transitioned to comfort care at family request (consistent with patient's own expressed wishes prior to her developing delirium) Palliative medicine consulted to assist with end-of-life care Summary of palliative recommendations: -Symptom management (Pain/other)- continue morphine drip with titration as needed for comfort. Other end-of-life care medications per protocol. Anticipate that the patient will here in hospital within the next 24-48 hours. Discussed plans with her nurse, hospitalist and case management. -DPOA/Advanced Directives/POLST- DO NOT RESUSCITATE/DO NOT INTUBATE/comfort care -Family/emotional support- palliative medicine will continue to follow and provide support -Spiritual support- in contact with hospital filling and packing supervisor will continue to follow Problems: Resuscitation Status Resuscitation Status: DNR/DNI:Do Not Resuscitate/Intubate POLST Updates/Changes Previous POLST?: No . Advanced Care Planning Address: Comfort care Pain: None Symptom management: Drowsiness/sleepiness Pt History History of Present Illness Per admission H&P: Lindsay Monterroso is a 66 yo [place] female with recent diagnosed metastatic liver/ lung/intracerebral cancer, Pyelonephritis who presents to [facility] emergency department via EMS c/o generalized pain and confusion History gathered from daughter as patient speaks little Armenian. Daughter reported patient having significant pain around her back and left shoulder area. Associated symptoms includes decreased appetite, patient has ate a small breakfast only for the last 2 days. She has been confused as well, with visual hallucinations. Case discussed with Dr Rutherford. Daughter wished on Comfort care at this time Palliative medicine consulted to assist with provision of comfort/end-of-life care Prior to visiting patient, reviewed her records in the EMR in detail. Spoke with her daughter at length and with her nurse and hospitalist. Patient's daughter reports that she had returned from a trip [facility] [facility] ( where she was visiting her father who had recently suffered a CVA) find that her mother was deteriorating with poor appetite, increasing weakness, nausea, etc. She was admitted to the hospital for evaluation with finding of widely metastatic cancer, unknown primary. Biopsies were obtained but results were pending and patient ultimately refused to go to her outpatient oncology follow- up visit. She advised her daughter that she did not wish to undergo any further evaluation or treatment. She continued to deteriorate at home and was admitted with increasing weakness and confusion and findings on brain CT suggesting widespread intracerebral metastases as well. At this point her daughter, consistent with the patient's wishes, requested transition to purely comfort care. Patient has remained noninteractive- cries out when moved but otherwise unresponsive. Comfort care medications initiated yesterday and continue with titration as needed in response to any signs or symptoms suggesting distress. Today when I spoke with her daughter she indicated that she is unable to have the patient return home even with hospice support. She also tearfully requested that we not attempt to transfer the patient to SNF because of the discomfort and distress that would cause her. Hospital filling and packing supervisor is following. Past Medical History Significant PMH Noted: Limited background history available. Please see admission H&P for details Social History Living Situation: Only recently returned from [place] and has been living with her daughter, her and 5 children in a small apartment Allergy Allergies Reviewed: Yes Medications Current Medications: Current Medications Hydromorphone HCl 0.5 mg Q30MIN PRN IVPUSH Last administered on 05/06/17 04:24 ; Admin Dose 0.5 MG; Start 05/05/17 at 21:00 Morphine Sulfate 2 mg Q1H PRN IVPUSH Last administered on 05/06/17 15:35; Admin Dose 2 MG; Start 05/05/17 at 21:40 Lorazepam 1 mg Q1H PRN IVPUSH Last administered on 05/07/17 02:59; Admin Dose 1 MG; Start 05/05/17 at 21:40 Haloperidol Lactate Start with 1 mg, if not effective ... Q1H PRN IVPUSH; Start 05/05/17 at 21:40 Atropine Sulfate Start with 2 drops, if ... Q1H PRN PO Last administered on 15:27; Admin Dose 1 DRP; Start 05/06/17 at 09:35 Glycopyrrolate Start with 0.2 mg, if ... Q1H PRN IVPUSH; Start 05/06/17 at 09: 35 Artificial Tears 1 drop Q1H PRN AFFECT_EYE Last administered on 05/06/17 15:26 ; Admin Dose 1 DROP; Start 05/06/17 at 09:35 Scopolamine 1.5 mg Q3D PRN TOPICAL Last administered on 05/06/17 15:25; Admin Dose 1.5 MG; Start 05/06/17 at 09:35 Morphine Sulfate 5-20 mg PO/SL prn pain/ discomfort Q2 PRN SL/PO; Start at 09:35 Lorazepam 0.5-2 mg PO/SL as directed Q2 PRN PO; Start 05/06/17 at 09:35 Scheduled Amlodipine (Amlodipine) 10 Mg Tablet 10 MG PO DAILY Lisinopril (Lisinopril) 20 Mg Tablet 20 MG PO DAILY Metoprolol Succinate ER (Metoprolol Succinate ER) 50 Mg Tab.er.24h 50 MG PO DAILY Sulfamethoxazole/Trimeth 800-160 mg (Bactrim DS 800-160 mg) 1 Each Tablet 1 TABLET PO BID Take twice per day for 5 more days then stop Objective Findings Exam Vital Sign - Last Date Time Temp Pulse Resp B/P Pulse Ox O2 Delivery O2 Flow Rate FiO2 05/07/17 04:50 18 05/06/17 18:01 36.6 128 121/79 88 Room Air Intake and Output 05/06/17 05/06/17 05/07/17 Cumulative From/Thru 15:00 23:00 07:00 05/05/17 18:45 - 05/07/17 06:48 Intake Total 0 ml 18 ml 2018 ml Output Total 0 ml 342 ml Balance 0 ml 18 ml 1676 ml Intake Oral 0 ml 0 ml IV Total 18 ml 2018 ml Output Urine Total 0 ml 342 ml # Bowel Movements 0 0 Objective Frail-appearing [place] woman, unresponsive and in no distress. Vital signs noted. Skin is warm and dry. Lungs clear anteriorly, heart tones regular, abdomen without apparent tenderness. Lab/Diagnostics Lab and Imaging results reviewed in detail in EMR. Time spent Total time 60 minutes; >50% face to face with patient and family, providing counselling regarding plans and recommendations, and in care coordination with her medical teams. All of the above time spent counseling/treating for comfort care with the patient and her daughter Jacky Thompson MD May 07, 2017 13:38 What is quality of life for the patient: to be able to interact with their loved ones and friends, to travel, not to be bedbound, to be independent in taking care of themselves: Would patient choose quality of life over quantity of life? Would comfort care be more important than being awake and alert? If patient is no longer alert and aware because of their illness, would you choose comfort for them? Palliative Care counselled: Time spent Total time [ ] minutes; >50% face to face with patient and/or family, providing counselling regarding plans and recommendations, and in care coordination with his/her medical teams. I also spent an additional [ ] minutes counseling for advanced care planning with the patient/the patients family/the surrogate decision maker. Jacky Thompson MD May 07, 2017 13:38
--- NOTE | 2017-05-07 13:51 | NUR ---
Palliative care note D/A: Case discussed this morning with Dr. Thompson. He will arrange a meeting with pt dtr and involve this worker. Plan to have been to discuss the possibility of hospice. Pt likely to dc to facility. After Dr. Thompson has examined pt and met with her dtr and other family, it emerges that pt will be comfort care and will most likely here in hospital. Dr. Thompson has discussed with [facility] Kaitlin HOLLEY. P: Palliative to follow as needed. Melissa SIMENTAL, CCM
--- NOTE | 2017-05-07 16:08 | PCM.PNMED ---
Subjective Date of Service May 07, 2017 Subjective Pt is currently comfort care. Family has requested patient remain in hospital as is expected to pass in next 24-36 hours. Exam Vital Signs Vital Sign - Last Date Time Temp Pulse Resp B/P Pulse Ox O2 Delivery O2 Flow Rate FiO2 05/07/17 04:50 18 05/06/17 18:01 36.6 128 121/79 88 Room Air Intake and Output 05/06/17 05/06/17 05/07/17 Cumulative From/Thru 15:00 23:00 07:00 05/05/17 18:45 - 05/07/17 06:48 Intake Total 0 ml 18 ml 2018 ml Output Total 0 ml 342 ml Balance 0 ml 18 ml 1676 ml Intake Oral 0 ml 0 ml IV Total 18 ml 2018 ml Output Urine Total 0 ml 342 ml # Bowel Movements 0 0 Exam General: Patient is laying in bed, moaning at times, thin/ cachectic HEENT: Fixed, dilated left pupil, right pupil appears to have a cataract Neck: Negative for JVD, trachea central Heart: Tachycardic no S3-S4 murmurs Lungs: Normal work of breathing Abdomen: Flat, nondistended, nontender, hyperactive bowel sounds Skin: Warm and dry Extremities: Negative for edema Neurological: non-responsive to verbal, did not administer noxious stimuli. IVs and Medications Medications Reviewed: Medications were reviewed in detail Lab and Diagnostics Result Diagram: 05/05/17191905/05/171919 X-Rays, CTs and MRIs CT BRAIN WITHOUT CONTRAST 05/05 IMPRESSION: 1. Multiple punctate hyperdense foci throughout the cerebrum without associated edema. This may represent multifocal punctate intracranial hemorrhage. Alternatively, intracranial metastasis could have this appearance. Differential considerations would include metastatic melanoma and hemorrhagic metastases. MRI of the brain with and without contrast is recommended to further characterize this finding. 2. 8 mm diameter right occipital hypodense focus with hyperdense rim which may represent intracranial metastasis and possible associated hemorrhage. 3. Probable bilateral small subgaleal hematomas suggesting recent fall history. Please correlate with clinical history of possible. If there is a history of recent trauma, the punctate hyperdense foci may be associated with diffuse axonal injury. These findings were discussed with Dr. Rutherford at 7:56 PM on 05/02/17. Dictated by: Debi Galvan M.D. on 05/05/2017 at 19:49 Approved by: Debi Galvan M.D. on 05/05/2017 at 20:00 X-RAY CHEST, TWO VIEWS 05/05 IMPRESSION: 1. Diffuse interstitial opacities which may be associated with pulmonary edema. 2. Probable small left pleural effusion and consolidation or aspiration at the left lung base. 3. Multifocal sclerotic bony lesions and mixed sclerotic/lytic lesion at the left glenoid suspicious for diffuse osseous metastasis. Dictated by: Debi Galvan M.D. on 05/05/2017 at 20:08 Approved by: Debi Galvan M.D. on 05/05/2017 at 20:10 Assessment & Plan Lindsay Monterroso is a 66 yo Occitan female with recent diagnosed metastatic liver/ lung cancer, Pyelonephritis who presents to [facility] emergency department via EMS c/o generalized pain and confusion Acute Encephalopathy due to multifocal punctate intracranial hemorrhage with brain metastasis. Present on admission -- Per Dr. Lloyd's notes ":"Discussed goals of care with daughter. Dexamethasone dose given. These metastasis to the brain was no noted during her recent hospitalization but could also explain some of her mentioned psychiatric problems and paranoia" - COMFORT CARE protocol initiated - Dr. Thompson from Palliative care team had family meeting on 05/07- current plan is comfort care. Pt will remain in hospital as expected to pass in next 24 hours. No plan to transfer to SNF. - Patient is currently on morphine gtt. Probable Metastatic Carcinoma unknown primary origin; ongoing. Presents with weight loss, anorexia over the last month or so. CT demonstrated diffuse metastatic disease - liver, lung, spleen. Diagnostic thoracentesis performed on 04/02. Transudative chemistries. Thoracentesis chemistries were transitive with LDH 71, total protein 2.9, glucose 127. Cell counts 425 RBC with 179 WBC 38% polymorphonuclear. - Dr Ac was consulted unfortunately the cancer is too advanced and decline in functional status - Comfort care as mentioned above Hypertension with Hypertensive urgency. During last hospital say she was managed with IV labetalol during acute abdominal distress. Now with increased metoprolol, lisinopril, amlodipine and her hydrochlorothiazide - all antihypertensive medications will be stopped at this time Recent Enterobacter beta-lactam resistant Pyelonephritis. Resolved Treatment with Zosyn switch to Bactrim 10 days completed. Leukocytosis is concerning but again we are focusing on comfort as the main goal at this time Hyponatremia, hypochloremia Likely related to malignancy. No further workup will be done at this time High risk medications: Morphine drip, Dilaudid PRN IV Dispo- - Dr. Thompson from Palliative care team had family meeting on 05/07- current plan is comfort care. Pt will remain in hospital as expected to pass in next 24 hours. . Pain Evaluation: Adequate Pain Control Resuscitation Status: Limited Interventions (Comfort care only ) Nasim Marin MD May 07, 2017 16:08
--- NOTE | 2017-05-07 18:26 | NUR ---
pt's vital signs were not done as she is on comfort care Addendum: 05/07/17 at 1827 by VANDANA KEBEDE CNA Amended: Links added.
--- NOTE | 2017-05-07 19:27 | NUR ---
Comfort Care Pt vitals and q/2hr turns not done during shift at pt family member request and as ordered. Pt continues to be restful/peaceful on Morphine gtt infusing with family at BS. Encouraged and reassured daughter at bs today that she has done a good job as a daughter providing her mother with dignity and peace in her time of passing to which she verbally expressed thanks. Per daughter pt's son to fly in tomorrow from [facility] to see his mother one final time. Pt resp 8/min, w/out s/s of distress. New comfort care care placed outside of pt room. Care ongoing.
[2017-05-07 19:30] VITALS: RESP 8
[2017-05-08 00:41] VITALS: RESP 9
--- NOTE | 2017-05-08 02:18 | NUR ---
Patient on comfort care, respirations 8 beginning of shift. No vital signs, repositioning or any touching per family request. Around midnight patient restless, groaning occasionally respirations 9. Given Ativan 1mg per orders. Pt stopped breathing and had no heartbeat 1t 0135. charge nurse confirmed that patient did not have a heartbeat and was not breathing. Family notified and paper work filled per protocol. Addendum: 05/08/17 at 0646 by LEWIS SAEED RN Family in the room after patient . Family requests to leave the body untouched for 8hrs due to cultural believes. Information on homes in the area provided per family request.
--- NOTE | 2017-05-08 08:01 | PCM.DC.MEX ---
Discharge Summary Date of Service May 08, 2017 Dates of Hospitalization Date of Hospital Admission May 05, 2017 at 21:55 Date of Expiration: May 08, 2017 Time of Expiration: 01:33 Providers: Admitting Physician: Shlomo Aguila MD Primary Care Physician: [facility] Attending Physician: Nasim Marin MD Diagnosis at Time of Intracranial hemorrhage with brain metastasis, cause of Acute Encephalopathy due to multifocal punctate intracranial hemorrhage with brain metastasis. Present on admission Probable Metastatic Carcinoma, unknown primary origin; ongoing. Hypertension with Hypertensive urgency. Hyponatremia, hypochloremia Consultations Palliative- Dr. Thompson Procedures XRay, CTs & MRIs CT BRAIN WITHOUT CONTRAST 05/05 IMPRESSION: 1. Multiple punctate hyperdense foci throughout the cerebrum without associated edema. This may represent multifocal punctate intracranial hemorrhage. Alternatively, intracranial metastasis could have this appearance. Differential considerations would include metastatic melanoma and hemorrhagic metastases. MRI of the brain with and without contrast is recommended to further characterize this finding. 2. 8 mm diameter right occipital hypodense focus with hyperdense rim which may represent intracranial metastasis and possible associated hemorrhage. 3. Probable bilateral small subgaleal hematomas suggesting recent fall history. Please correlate with clinical history of possible. If there is a history of recent trauma, the punctate hyperdense foci may be associated with diffuse axonal injury. These findings were discussed with Dr. Rutherford at 7:56 PM on 05/02/17. Dictated by: Debi Galvan M.D. on 05/05/2017 at 19:49 Approved by: Debi Galvan M.D. on 05/05/2017 at 20:00 X-RAY CHEST, TWO VIEWS 05/05 IMPRESSION: 1. Diffuse interstitial opacities which may be associated with pulmonary edema. 2. Probable small left pleural effusion and consolidation or aspiration at the left lung base. 3. Multifocal sclerotic bony lesions and mixed sclerotic/lytic lesion at the left glenoid suspicious for diffuse osseous metastasis. Dictated by: Debi Galvan M.D. on 05/05/2017 at 20:08 Approved by: Debi Galvan M.D. on 05/05/2017 at 20:10 Brief History Per admission H&P: Lindsay Monterroso is a 66 yo Lithuanian female with recent diagnosed metastatic liver/ lung/intracerebral cancer, Pyelonephritis who presents to [facility] emergency department via EMS c/o generalized pain and confusion History gathered from daughter as patient speaks little Indian. Daughter reported patient having significant pain around her back and left shoulder area. Associated symptoms includes decreased appetite, patient has ate a small breakfast only for the last 2 days. She has been confused as well, with visual hallucinations. Case discussed with Dr Rutherford. Daughter wished on Comfort care at this time Palliative medicine consulted to assist with provision of comfort/end-of-life care Prior to visiting patient, reviewed her records in the EMR in detail. Spoke with her daughter at length and with her nurse and hospitalist. Patient's daughter reports that she had returned from a trip to the [facility] ( where she was visiting her father who had recently suffered a CVA) find that her mother was deteriorating with poor appetite, increasing weakness, nausea, etc. She was admitted to the hospital for evaluation with finding of widely metastatic cancer, unknown primary. Biopsies were obtained but results were pending and patient ultimately refused to go to her outpatient oncology follow- up visit. She advised her daughter that she did not wish to undergo any further evaluation or treatment. She continued to deteriorate at home and was admitted with increasing weakness and confusion and findings on brain CT suggesting widespread intracerebral metastases as well. At this point her daughter, consistent with the patient's wishes, requested transition to purely comfort care. Patient has remained noninteractive- cries out when moved but otherwise unresponsive. Comfort care medications initiated yesterday and continue with titration as needed in response to any signs or symptoms suggesting distress. Today when I spoke with her daughter she indicated that she is unable to have the patient return home even with hospice support. She also tearfully requested that we not attempt to transfer the patient to SNF because of the discomfort and distress that would cause her. Hospital fire and safety helper is following. Hospital Course Lindsay Monterroso is a 66 yo Lithuanian female with recent diagnosed metastatic liver/ lung cancer, Pyelonephritis who presents to [facility] emergency department via EMS c/o generalized pain and confusion. Pt placed on comfort care and passed 05/08 overnight. Acute Encephalopathy due to multifocal punctate intracranial hemorrhage with brain metastasis. Present on admission -- Per Dr. Lloyd's notes ":"Discussed goals of care with daughter. Dexamethasone dose given. These metastasis to the brain was no noted during her recent hospitalization but could also explain some of her mentioned psychiatric problems and paranoia" - COMFORT CARE protocol initiated - Dr. Thompson from Palliative care team had family meeting on 05/07- current plan is comfort care. Pt will remain in hospital as expected to pass in next 24 hours. No plan to transfer to SNF. - Patient was on morphine gtt. Per nurse note- 05/08/17, Eula Maguire RN Patient on comfort care, respirations 8 beginning of shift. No vital signs, repositioning or any touching per family request. Around midnight patient restless, groaning occasionally respirations 9. Given Ativan 1mg per orders. Pt stopped breathing and had no heartbeat 1t 0135. charge nurse confirmed that patient did not have a heartbeat and was not breathing. Family notified and paper work filled per protocol. Probable Metastatic Carcinoma unknown primary origin; ongoing. Presented with weight loss, anorexia over the last month or so. CT demonstrated diffuse metastatic disease - liver, lung, spleen. Diagnostic thoracentesis performed on 04/02. Transudative chemistries. Thoracentesis chemistries were transitive with LDH 71, total protein 2.9, glucose 127. Cell counts 425 RBC with 179 WBC 38% polymorphonuclear. - Dr Ac was consulted unfortunately the cancer is too advanced and decline in functional status - Comfort care as mentioned above Hypertension with Hypertensive urgency. During last hospital say she was managed with IV labetalol during acute abdominal distress. Now with increased metoprolol, lisinopril, amlodipine and her hydrochlorothiazide - all antihypertensive medications will be stopped at this time Recent Enterobacter beta-lactam resistant Pyelonephritis. Resolved Treatment with Zosyn switch to Bactrim 10 days completed. Hyponatremia, hypochloremia Likely related to malignancy. No further workup done . Exam Test 05/05/17 19:20 White Blood Count 32.0th/mm3 (3.8-10.1) Red Blood Count 6.03mil/mm3 (3.90-5.20) Hemoglobin 11.8g/dL (12.0-15.6) Hematocrit 36.0% (35.0-46.0) Mean Corpuscular Volume 59.7fL (81-100) Mean Corpuscular Hemoglobin 19.6pg (27.0-35.0) Mean Corpuscular Hemoglobin Concent 32.8% (32.0-37.0) Red Cell Distribution Width 20.7% (12.3-15.4) Platelet Count 52bil/L (150-400) Neutrophils (%) (Auto) 74% (40-74) Lymphocytes (%) (Auto) 3% (14-46) Monocytes (%) (Auto) 5% (4-12) Eosinophils (%) (Auto) 7% (0-5) Basophils (%) (Auto) 0% (0-3) Band Neutrophils % 11% (1-5) Nucleated Red Blood Cells 2/100 WBC (0-24) Hematology Comments Prothrombin Time 14.3sec (8.1-12.5) Prothromb Time International Ratio 1.33ratio Sodium Level 133mEq/L (134-144) Potassium Level 4.6mEq/L (3.5-5.2) Chloride Level 94mEq/L (97-108) Carbon Dioxide Level 18mmol/L (18-29) Blood Urea Nitrogen 77mg/dL (8-27) Creatinine 1.03mg/dL (0.57-1.00) Estimat Glomerular Filtration Rate 77mL/min (>59) Glucose Level 113mg/dL (60-99) Lactic Acid Level 2.9mmol/L (0.4-2.0) Calcium Level 10.2mg/dL (8.5-10.1) Total Bilirubin 0.9mg/dL (0.0-1.2) Aspartate Amino Transf (AST/SGOT) 41U/L (0-50) Alanine Aminotransferase (ALT/SGPT) 27U/L (0-32) Alkaline Phosphatase 923U/L (25-165) Troponin T 0.064ug/L (0.0-0.011) Total Protein 6.4g/dL (6.4-8.4) Albumin 2.8g/dL (3.4-5.0) Procalcitonin 0.61ng/mL (0.00-0.08) Nasim Marin MD May 08, 2017 08:01
--- NOTE | 2017-05-08 10:24 | NUR ---
Shift Report At start of shift, patient had already passed, still in room with family. Offering supportive care for family and time for mosque practices this morning over the body. home established. Family would like until 1300 for chanting over the body.
--- NOTE | 2017-05-08 13:43 | NUR ---
Discharge After family done with ritual services, patient put in body bag and transported to [facility] at 1345. Family inclusion and support given throughout the day and this final process.
== END 2017-05-08 01:37 | disposition expired | DRG 64 ==
LOC: EDBD 18:27 → SED 18:27 → EDSEX 18:27 → OSC 21:55
PROVIDERS: ADMIT Hospitalist; ATTEND Internal Medicine
DX: I61.9 Nontraumatic intracerebral hemorrhage, unspecified (principal); G93.40 Encephalopathy, unspecified; C78.7 Secondary malignant neoplasm of liver and intrahepatic bile duct; C79.31 Secondary malignant neoplasm of brain; C78.00 Secondary malignant neoplasm of unspecified lung; R64 Cachexia; Z68.1 Body mass index [BMI] 19.9 or less, adult; Z51.5 Encounter for palliative care; G89.3 Neoplasm related pain (acute) (chronic); E86.0 Dehydration; I10 Essential (primary) hypertension; Z66 Do not resuscitate; I16.0 Hypertensive urgency; E87.8 Other disorders of electrolyte and fluid balance, not elsewhere classified; R40.2142 Coma scale, eyes open, spontaneous, at arrival to emergency department; R40.2362 Coma scale, best motor response, obeys commands, at arrival to emergency department; R40.2242 Coma scale, best verbal response, confused conversation, at arrival to emergency department